=== PATIENT | male | born 1945 | race Caucasian/White ===

== ENCOUNTER → 2018-10-22 11:42 | Outpatient (CLI) | payer MEDICARE, OTHER, SELFPAY ==
[2018-10-22 15:44] LABS: Absolute Lymphocyte Count 1.59 X10^3/ul (0.83-4.51); Absolute Neutrophil Count 5.9 X10^3/uL (2.0-7.7); Eosinophil# 0.31 X10^3/uL; Eosinophils% 3.6 % (0-5); Hematocrit 46.1 % (40-54); Hemoglobin 15.4 g/dl (13.0-16.5); Lymphocyte # 1.59 X10^3/ul (4.0); Lymphocyte % 18.6 % (19-41); Mean Corp Hgb Conc 33.4 g/gl (32-36); Mean Corpuscular Volume 95.8 fL (80-94); Mean Platelet Vol. 11.1 fl (6.2-12.0); Monocyte# 0.74 X10^3/uL; Monocyte% 8.7 % (0-10); Neutrophil # 5.88 X10^3/uL (2.7-7.7); Neutrophil % 68.9 % (47-70); Platelet Count 226 K/mm3 (150-450); RBC Distribution Width CV 13.2 % (11.6-14.6); RBC Distribution Width SD 45.4 fl (35.1-43.9); Red Blood Count 4.81 M/mm3 (4.6-6.2); White Blood Count 8.5 K/mm3 (4.4-11.0)
[2018-10-22 15:56] LABS: AST(SGOT) 34 U/L (15-37); Alanine Aminotransfer ALT/SGPT 28 U/L (16-61); Albumin, Serum 3.7 g/dL (3.2-5.0); Alkaline Phosphatase 64 U/L (45-117); Anion Gap 10 (5-15); BUN 20 mg/dL (7-18); BUN/Creat Ratio 16.5 RATIO (10-20); Calcium,Total 8.5 mg/dL (8.5-10.1); Chloride 108 mmol/L (98-107); Cholesterol 170 mg/dL (200); Creatinine, Serum 1.21 mg/dL (0.70-1.30); EST Glomerular Filtration Rate 62 mL/min (>60); Est Glom Filt Rate - Afr Amer 75 mL/min (>60); Globulin 3.7 g/dL (2.2-4.2); Glucose 126 mg/dL (74-106); High Density Lipoprotein 35 mg/dL; PSA,Total - Annual Screen 1.58 ng/mL (0.00-4.00); Potassium 4.1 mmol/L (3.5-5.1); Protein, Total 7.4 g/dL (6.4-8.2); Sodium Level 140 mmol/L (136-145); Triglycerides 96 mg/dL; Very Low Density Lipoprotein 19 mg/dL (5-40)
[2018-10-22 15:58] LABS: POSITIVE COUNT NO; POSITIVE DIFFERENTIAL NO; POSITIVE MORPHOLOGY NO
[2018-10-22 16:21] LABS: Hemoglobin A1c 6.2 % (4.2-6.3)
== END ==
PROVIDERS: Family Provider Family Medicine; PCP Family Medicine; Visit Provider Family Medicine
DX: Z00.01 Encounter for general adult medical examination with abnormal findings (principal); I10 Essential (primary) hypertension; R73.01 Impaired fasting glucose; E78.5 Hyperlipidemia, unspecified; Z12.5 Encounter for screening for malignant neoplasm of prostate
CPT/HCPCS: 36415; 80053; 80061; 83036; 84153; 85025; G0103

== ENCOUNTER → 2019-10-24 14:01 | Outpatient (CLI) | payer MEDICARE, OTHER, SELFPAY ==
[2019-10-24 15:46] LABS: Absolute Lymphocyte Count 4.63 X10^3/uL (0.83-4.51); Absolute Neutrophil Count 4.2 X10^3/uL (2.0-7.7); Basophil# 0.03 X10^3/uL; Basophil% 0.3 % (0-1); Eosinophil# 0.45 X10^3/uL; Eosinophils% 4.4 % (0-5); Hematocrit 34.8 % (40-54); Lymphocyte # 4.63 X10^3/ul (4.0); Lymphocyte % 45.6 % (19-41); Mean Corp Hgb Conc 28.7 g/dL (32-36); Mean Corpuscular Hgb 22.1 pg (27.0-32.0); Mean Platelet Vol. 10.5 fl (6.2-12.0); Monocyte# 0.79 X10^3/uL; Monocyte% 7.8 % (0-10); NRBC Flagged by Analyzer 0 % (0-5); Neutrophil # 4.23 X10^3/uL (2.7-7.7); Neutrophil % 41.6 % (47-70); Platelet Count 411 K/mm3 (150-450); Red Blood Count 4.52 M/mm3 (4.6-6.2); White Blood Count 10.2 K/mm3 (4.4-11.0)
[2019-10-24 16:08] LABS: Hemoglobin A1c 7.2 % (4.2-6.3)
[2019-10-24 16:11] LABS: Vitamin B12 433 pg/mL (211-911)
[2019-10-24 16:13] LABS: AST(SGOT) 14 U/L (15-37); Alanine Aminotransfer ALT/SGPT 18 U/L (16-61); Albumin, Serum 3.8 g/dL (3.2-5.0); Alkaline Phosphatase 75 U/L (45-117); Anion Gap 7 (5-15); BUN 21 mg/dL (7-18); BUN/Creat Ratio 17.5 RATIO (10-20); Calcium,Total 8.5 mg/dL (8.5-10.1); Chloride 110 mmol/L (98-107); Cholesterol 161 mg/dL (200); EST Glomerular Filtration Rate 63 mL/min (>60); Est Glom Filt Rate - Afr Amer 76 mL/min (>60); Globulin 3.7 g/dL (2.2-4.2); Glucose 144 mg/dL (74-106); High Density Lipoprotein 36 mg/dL; PSA,Total - Annual Screen 1.68 ng/mL (0.00-4.00); Potassium 3.9 mmol/L (3.5-5.1); Protein, Total 7.5 g/dL (6.4-8.2); Sodium Level 139 mmol/L (136-145); Triglycerides 89 mg/dL; Very Low Density Lipoprotein 18 mg/dL (5-40)
== END ==
PROVIDERS: Family Provider Family Medicine; PCP Family Medicine; Visit Provider Family Medicine
DX: E78.5 Hyperlipidemia, unspecified (principal); R73.01 Impaired fasting glucose; Z12.5 Encounter for screening for malignant neoplasm of prostate; Z51.81 Encounter for therapeutic drug level monitoring
CPT/HCPCS: 36415; 80053; 80061; 82607; 83036; 84153; 85025; G0103

== ENCOUNTER → 2019-10-28 10:55 | Outpatient (CLI) | payer MEDICARE, OTHER, SELFPAY ==
[2019-10-28 12:36] LABS: Ferritin 8 ng/mL (26-388); Iron 20 ug/dL (65-175)
== END ==
PROVIDERS: Family Provider Family Medicine; PCP Family Medicine; Visit Provider Family Medicine
DX: D64.9 Anemia, unspecified (principal)
CPT/HCPCS: 36415; 82728; 83540

== ENCOUNTER → 2019-11-06 05:53 | Outpatient (CLI) | payer MEDICARE, OTHER, SELFPAY ==
[2019-11-03 09:39] VITALS: BMI 33.7
--- NOTE | 2019-11-07 12:49 | STRESSREP ---
Stress Test Report Date: 11/06/2019 Procedure: Pharmacologic stress nuclear imaging study Indications: Hypertension, strong family history of CAD Consent: Per the patient Procedure: The patient underwent pharmacologic (Regadenoson) evaluation with a peak heart rate of 90 beats per minute (61 %predicted maximal heart rate) and a peak blood pressure of 128/70 mmHg. The baseline ECG demonstrated sinus bradycardia occasional PVCs. EKG during lexiscan infusion revealed no significant change from baseline. EKG post infusion revealed no significant change from baseline [There were no cardiac dysrhythmias pretest, during pharmacologic infusion, or recovery]. [There was no complaint of chest discomfort during pharmacologic infusion or recovery]. The examination was discontinued secondary to completion of protocol. Impression: 1. Lexiscan stress test test is negative for Lexiscan infusion induced EKG changes of ischemia. 2. Lexiscan stress test test is negative for Lexiscan infusion induced chest pain. 3. Results of the nuclear portion of the test is as below Myocardial perfusion imaging study: Technique: The patient was injected with 11 millicuries of technetium 99m Cardiolite and subsequently rest SPECT Cardiolite nuclear imaging was obtained in the horizontal long, vertical long, and short axis views. The patient underwent pharmacologic (Regadenoson) evaluation. Please see above for details. The patient was injected with 33 millicuries of technetium 99m Cardiolite and subsequently stress SPECT Cardiolite nuclear imaging was obtained in the horizontal long, vertical long, and short axis views. A gated Cardiolite study at peak stress was obtained. Interpretation: Rest and stress SPECT Cardiolite nuclear imaging status post realignment, normalization, and attenuation correction demonstrate mildly decreased radioisotope uptake in the inferior wall on both the rest and stress images prior to attenuation correction. After attenuation correction there appears to be normalization of the uptake in this region. These findings are suggestive of diaphragmatic attenuation artifact. There is no significant reversibility suggestive of significant ischemia. Gated images reveal no significant regional wall motion abnormalities. The reported LVEF is greater than 70 %. Impression: 1. There is no evidence of significant ischemia or infarction. 2. Estimated ejection fraction is greater than 70%. This note was generated with [employer] software. It may contain incorrect words, spelling, and punctuation that were not noted in checking the note before signing.
== END ==
PROVIDERS: Family Provider Family Medicine; PCP Family Medicine; Referring Provider Family Medicine; Visit Provider Family Medicine
DX: I25.10 Atherosclerotic heart disease of native coronary artery without angina pectoris (principal); I25.83 Coronary atherosclerosis due to lipid rich plaque; I10 Essential (primary) hypertension; Z82.49 Family history of ischemic heart disease and other diseases of the circulatory system
CPT/HCPCS: 78452; 93017; A9500; A4216; J2785

== ENCOUNTER 2019-11-10 09:50 | Day surgery (SDC) | payer MEDICARE, OTHER, SELFPAY ==
[2019-11-03 09:39] VITALS: BMI 33.7
--- NOTE | 2019-11-04 08:43 | HP_ITS ---
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 Is patient in pain?: No Allergies No Known Allergies Allergy (Unverified 11/03/19 09:40) Medications amlodipine 10 mg tablet 10 mg PO DAILY 11/03/19 [History Confirmed 11/03/19] ascorbate calcium (vitamin C) 500 mg tablet 500 mg PO DAILY 11/03/19 [History Confirmed 11/03/19] aspirin 81 mg tablet,delayed release 81 mg PO DAILY 11/03/19 [History Confirmed 11/03/19] beta carotene 25,000 unit capsule 25,000 unit PO DAILY 11/03/19 [History Confirmed 11/03/19] cholecalciferol (vitamin D3) 1,000 unit capsule 1,000 unit PO DAILY 11/03/19 [History Confirmed 11/03/19] loratadine 10 mg tablet 10 mg PO DAILY 11/03/19 [History Confirmed 11/03/19] lutein 25 mg-zeaxanthin 5 mg capsule 1 cap PO QDAY cap 11/03/19 [History Confirmed 11/03/19] lysine 500 mg tablet 500 mg PO DAILY 11/03/19 [History Confirmed 11/03/19] omeprazole 20 mg tablet,delayed release 20 mg PO DAILY 11/03/19 [History Confirmed 11/03/19] saw palmetto 160 mg capsule 160 mg PO DAILY cap 11/03/19 [History Confirmed 11/03/19] vitamin E (dl, acetate) 400 unit capsule 400 unit PO DAILY 11/03/19 [History Confirmed 11/03/19] [facility] Medical History (Updated 11/03/19 @ 09:36 by Nhi Villarreal) Anemia (Acute) Heme positive stool (Acute) Dyslipidemia (Acute) Hypertension (Chronic) CAD (coronary artery disease) (Acute) Diabetes (Acute) Fatigue (Acute) History of gastroesophageal reflux (GERD) (Chronic) History of chronic cholecystitis (Chronic) History of acute pancreatitis (Chronic) Surgical History (Updated 11/03/19 @ 09:36 by Nhi Villarreal) Hx of cholecystectomy (Acute) Hx of appendectomy (Acute) Family History (Updated 11/03/19 @ 09:38 by Nhi Villarreal) Sister Breast cancer Heart disease CVA (cerebral vascular accident) Father Heart disease Brother Heart disease Social History (Updated 11/03/19 @ 09:39 by Nhi Villarreal) Smoking Status: Former smoker second hand exposure: No alcohol intake: never substance use type: does not use caffeine: No what type of physical activity do you participate in: none frequency: does not exercise HPI HPI HPI: ALEJANDRO MAYER, is a 74 M who presents to the office today for HPI HPI HPI: ALEJANDRO MAYER, is a 74 M who presents to the office today for Date _ Giancarlo Zhou MD
[2019-11-10] VITALS (7 sets, daily range): BP systolic 79–116; BP diastolic 52–67; PULSE 50–81; RESP 16; TEMP 36.2–36.6; O2SAT 94–100; BMI 32.5
--- NOTE | 2019-11-10 | COLBX_PTH ---
PATIENT: ALEJANDRO CHAN LOC: EN U#:[id number] AGE/SX: 74/M ROOM: RE11/10/[address]: Dr. Giancarlo Zhou MD : 1945 BED: DIS: 11/10/2019 SPEC #: [id number] RECD: 11/10/19 15:10 STATUS: SHALOM REQ #: [id number] DEL: 11/10/19 00:[address]: Giancarlo Zhou DEPT: SURGICAL PATHOLOGY RECD BY: Cristobal Avery ENTERED: 11/11/19 08:39 SP TYPE: COLON BX OTHR DR: Dr. 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 See comment. AM:holden 11/13/19 COMMENT Immunohistochemistry ([id number]) supports the above diagnosis. MICROSCOPIC DESCRIPTION Slides are reviewed. GROSS DESCRIPTION Received in fixative is one container labeled with the patient's name and designated 5 cm distal to ileocecal valve. The specimen consists of multiple irregular fragments of light melendez soft tissue that in aggregate measure 1.2 x 0.5 x 0.1 cm. The specimen is totally submitted in one cassette. / SJ:holden 11/11/19 TC:0 CPT: 69079
--- NOTE | 2019-11-10 | IMM_PTH ---
PATIENT: ALEJANDRO CHAN LOC: EN U#:[id number] AGE/SX: 74/M ROOM: RE11/10/[address]: Dr. Giancarlo Zhou MD : 1945 BED: DIS: 11/10/2019 SPEC #: [id number] RECD: 11/13/19 11:59 STATUS: SOUT REQ #: [id number] DEL: 11/10/19 00:[address]: Giancarlo Zhou DEPT: IMMUNOHISTOCHEMISTRY RECD BY: Melinda Valero ENTERED: 11/13/19 12:01 SP TYPE: IMMUNO OTHR DR: Dr. Matteo Chan, DO Tissues: Ileum, NOS Procedures: RCC (add) MSH2 (add) MLH-1 (add) MSH6 (add) Anti-PMS2 (add) NAPSIN A (add) CD56 (add) CHROMO (add) CK20 (add) CK5-6 (add) CK7 (add) CK8 (add) CLEMENT-2 (add) HEP PAR (add) KI-67 (add) P16 (add) P53 (add) TTF1 (add) Pankeratin (initial) P40 (add) CDX2 (add) PSAP (add) S-100 (add) PHYSICIAN & [place] [id number] SPECIMEN INFORMATION: Tissue Source: Mass distal to ileocecal valve, biopsy Clinical Info: Anemia, positive Cologuard Specimen Number: [id number] CPT code: 35765, 46881 x22 METHODOLOGY: Deparaffinized sections of prefer/formalin-fixed tissue or PAP/DQ stained slides are incubated with monoclonal/polyclonal antibodies/oligonucleotide probes. Localization is made via biotin free immunoperoxidase method. Appropriate controls are performed and reacted as expected. Results on target cell population are indicated in the following table: RESULTS: ANTIBODY / CLONE RESULT AE1-3 (AE1/AE3/PCK26) positive CK7 (OV-TL12/30) positive, focal CK8 (87ogqlW14) positive CK20 (KS20.8) positive, focal CDX2 (PFK5056B) positive S-100 (4C4.9) negative CD56 (123C3.D5) negative Chromo (LK2H10) negative TTF-1 (8G7G3/1) negative Napsin A (Rabbit Polyclonal) positive HepPar (OCh1E5) negative RCC (PN-15) negative PSAP (PASE/4LJ) negative CK5-6 (D5 & 1684) negative P40 (BC28) negative Ki-67 (30-9) positive, >80% P53 (DO-7) positive, 45% CLEMENT-2 (SP21) positive MLH-1 (M1) positive MSH2 (25D12) positive MSH6 (44) positive PMS2 (HNI2574) positive P16 (E6H4) positive These tests were developed and their performance characteristics determined by [facility]. They may not have been cleared or approved by the U.S. Food and Drug Administration. The FDA has determined that such clearance or approval is not necessary. The above immunohistochemical/dualISH markers are ordered and reviewed by the Pathologist. INTERPRETATION: Mass distal to ileocecal valve, biopsy: Poorly differentiated adenocarcinoma. Result of Microsatellite Instability Study: Negative (no loss of mismatch protein; no microsatellite instability detected). AM:holden 11/14/19
[2019-11-10] MEDS: Lactated Ringers 1,000 ML 100 ML IV ×2 (10:42→13:51)
--- NOTE | 2019-11-10 11:08 | PCM.HP.BLA ---
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 Is patient in pain?: No Allergies No Known Allergies Allergy (Unverified 11/03/19 09:40) Medications amlodipine 10 mg tablet 10 mg PO DAILY 11/03/19 [History Confirmed 11/03/19] ascorbate calcium (vitamin C) 500 mg tablet 500 mg PO DAILY 11/03/19 [History Confirmed 11/03/19] aspirin 81 mg tablet,delayed release 81 mg PO DAILY 11/03/19 [History Confirmed 11/03/19] beta carotene 25,000 unit capsule 25,000 unit PO DAILY 11/03/19 [History Confirmed 11/03/19] cholecalciferol (vitamin D3) 1,000 unit capsule 1,000 unit PO DAILY 11/03/19 [History Confirmed 11/03/19] loratadine 10 mg tablet 10 mg PO DAILY 11/03/19 [History Confirmed 11/03/19] lutein 25 mg-zeaxanthin 5 mg capsule 1 cap PO QDAY cap 11/03/19 [History Confirmed 11/03/19] lysine 500 mg tablet 500 mg PO DAILY 11/03/19 [History Confirmed 11/03/19] omeprazole 20 mg tablet,delayed release 20 mg PO DAILY 11/03/19 [History Confirmed 11/03/19] saw palmetto 160 mg capsule 160 mg PO DAILY cap 11/03/19 [History Confirmed 11/03/19] vitamin E (dl, acetate) 400 unit capsule 400 unit PO DAILY 11/03/19 [History Confirmed 11/03/19] [facility] Medical History (Updated 11/04/19 @ 08:42 by Giancarlo Zhou MD) Anemia (Acute) Heme positive stool (Acute) Dyslipidemia (Acute) Hypertension (Chronic) CAD (coronary artery disease) (Acute) Diabetes (Acute) Fatigue (Acute) History of gastroesophageal reflux (GERD) (Chronic) History of chronic cholecystitis (Chronic) History of acute pancreatitis (Chronic) Surgical History (Updated 11/03/19 @ 09:36 by Nhi Villarreal) Hx of cholecystectomy (Acute) Hx of appendectomy (Acute) Family History (Updated 11/03/19 @ 09:38 by Nhi Villarreal) Sister Breast cancer Heart disease CVA (cerebral vascular accident) Father Heart disease Brother Heart disease Social History (Updated 11/04/19 @ 08:43 by Giancarlo Zhou MD) Smoking Status: Former smoker second hand exposure: No alcohol intake: never substance use type: does not use caffeine: No what type of physical activity do you participate in: none frequency: does not exercise HPI HPI HPI: ALEJANDRO MAYER, is a 74 M who presents to the office today for HPI HPI Surgical H&P: Yes HPI: ALEJANDRO MAYER, is a 74 M who presents to the office today for positive fecal occult blood test. The patient had a recent Hemoccult positive stool after being found to have iron deficiency anemia. His last colonoscopy was in 2009. He reports no gross blood in stool or abdominal pain. He is on aspirin. He has no family history of colon cancer. ROS General General: Yes fatigue; no weight change Endo Endocrine: Yes diabetes mellitus Cardio Cardiovascular: Yes high blood pressure; no murmur, pacemaker, heart disease, atrial fibrillation, heart attack, heart stent, palpitations, shortness of breat with exertion or chest pain Psych Psychiatric: No depression or anxiety Resp Respiratory: No shortness of breath, No sleep apnea, No cough, No COPD, No asthma, No emphysema, No wheezing Gastro Gastrointestinal: No abdominal pain, No nausea or vomiting, No diarrhea, No constipation, Yes blood in stool, Yes acid reflux, No hemorrhoids, No ulcers, No gallbladder problem, No black,tarry stools Zhang Hematologic: Yes blood thinners, Yes anemia Exam Const General: cooperative Orientation: alert, oriented x3 Resp Effort & Inspection: normal respiratory effort Auscultation: clear to auscultation bilaterally Cardio Rate: regular rate Rhythm: regular rhythm Heart Sounds: no murmurs GI Inspection: non-distended Palpation: soft, nontender Assessment & Plan Problems 1. Iron deficiency anemia, unspecified iron deficiency anemia type D50.9 2. Heme positive stool R19.5 Plan The patient has history of iron deficiency anemia and heme positive stool. I recommend EGD and colonoscopy. I explained endoscopy in detail to the patient. I explained the risks including but not limited to stroke or heart attack with anesthesia, perforation of the GI tract, bleeding, infection. I explained that any of these could necessitate further emergency surgery. The patient understands and all questions were answered sufficiently. The patient wishes to proceed with procedure. Giancarlo Zhou MD Pager: [facility] [address] [place] [address], [address] [place] [address] Office:
--- NOTE | 2019-11-10 11:45 | CT_ITS ---
STUDY: CT ABDOMEN AND PELVIS WITH CONTRAST REASON FOR EXAM: Male, 74 years old. Colon cancer, anemia, abnormal colonoscopy, mass of ascending colon. Prior appendectomy, cholecystectomy, hypertension, diabetes. RADIATION DOSAGE (If Supplied By Facility): CTDIvol = ( 17.39 ) mGy, DLP = ( 1138.88 ) mGycm TECHNIQUE: Transaxial images were obtained from the dome of the diaphragm to the symphysis pubis without oral contrast. 100mL Isovue-300 and amp; gastrografin was administered. Sagittal and coronal images were reconstructed. Individualized dose optimization techniques were used for this CT. COMPARISON: 12/06/2011. FINDINGS: Small hiatal hernia. The visualized lung bases are unremarkable. The visualized portions of the heart are within normal limits. Normal liver. Postsurgical change in the gallbladder fossa region. There are multiple benign calcified granulomata of the spleen. Normal pancreas. Normal bilateral adrenal glands. Normal right kidney. Left renal cyst within left kidney measuring 4.2 x 4.1 cm in cross-section. Normal visualized stomach. Normal caliber of small intestine. Lesion within the right ascending colon about 4.3 cm distal to the ileocecal valve consistent with patient history of colonic cancer. There are surgical clips in the region of the appendix consistent with a prior appendectomy. There is diffuse atherosclerotic calcification of the abdominal aorta, without a demonstrated aneurysm. 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 Normal retroperitoneum. Normal urinary bladder. Normal abdominal wall. There are diffuse degenerative changes of the visualized lumbar spine. CT/Abdomen/Pelvis WITH Contrast IMPRESSION: Lesion within the right ascending colon about 4.3 cm distal to the ileocecal valve consistent with patient history of colonic cancer. Postsurgical change in the gallbladder fossa. Left renal cyst likely benign measuring 4.2 x 4.1 cm. No gross ascites fluid in the peritoneal space. No evidence of intrahepatic lesion. Electronically Signed: Lauro Terry MD at 15:50 EST Tel [phone], Service support ,
--- NOTE | 2019-11-10 11:49 | OP.EGD_ITS ---
Patient Name: Dougie Chan Procedure Date: 11/10/2019 11:12 AM Date of : 1945 Age: 74 Procedure: Upper GI endoscopy Indications: Iron deficiency anemia Providers: Giancarlo Zhou MD Referring MD: Matteo Chan Medicines: Monitored Anesthesia Care Patient Profile: This is a 74 year old male. Refer to note in patient chart for documentation of history and physical. Complications: No immediate complications. Estimated blood loss: Minimal. Procedure: Pre-Anesthesia Assessment: - Prior to the procedure, a History and Physical was performed, and patient medications and allergies were reviewed. The patient's tolerance of previous anesthesia was also reviewed. The risks and benefits of the procedure and the sedation options and risks were discussed with the patient. All questions were answered, and informed consent was obtained. Prior Anticoagulants: The patient has taken no previous anticoagulant or antiplatelet agents. After reviewing the risks and benefits, the patient was deemed in satisfactory condition to undergo the procedure. After obtaining informed consent, the endoscope was passed under direct vision. Throughout the procedure, the patient's blood pressure, pulse, and oxygen saturations were monitored continuously. The gastroscope was introduced through the mouth, and advanced to the second part of duodenum. The upper GI endoscopy was accomplished without difficulty. The patient tolerated the procedure well. Scope In: 11:28:28 AM Scope Out: 11:30:09 AM Total Procedure Duration Time 0 hours 1 minute 41 seconds Findings: The esophagus was normal. The stomach was normal. The examined duodenum was normal. A small hiatal hernia was present. Impression: - Normal esophagus. - Normal stomach. - Normal examined duodenum. - Small hiatal hernia. - No specimens collected. Recommendation: - Discharge patient to home. - Resume previous diet. - Continue present medications. Procedure Code(s): --- Professional --- 13459, Esophagogastroduodenoscopy, flexible, transoral; diagnostic, including collection of specimen(s) by brushing or washing, when performed (separate procedure) Diagnosis Code(s): --- Professional --- K44.9, Diaphragmatic hernia without obstruction or gangrene D50.9, Iron deficiency anemia, unspecified CPT copyright 2017 [employer]. All rights reserved. The codes documented in this report are preliminary and upon emergency medicine physician review may be revised to meet current compliance requirements. Giancarlo Zhou MD 11/10/2019 11:49:11 AM This report has been signed electronically. Number of Addenda: 0 Note Initiated On: 11/10/2019 11:12 AM
--- NOTE | 2019-11-10 11:54 | OP.COLON_ITS ---
Patient Name: Dougie Chan Procedure Date: 11/10/2019 11:30 AM Date of : 1945 Age: 74 Procedure: Colonoscopy Indications: Iron deficiency anemia, Positive Cologuard test Providers: Giancarlo Zhou MD Referring MD: Matteo Chan Medicines: Monitored Anesthesia Care Patient Profile: This is a 74 year old male. Refer to note in patient chart for documentation of history and physical. Last Colonoscopy: 10 years ago. Complications: No immediate complications. Estimated blood loss: Minimal. Procedure: Pre-Anesthesia Assessment: - Prior to the procedure, a History and Physical was performed, and patient medications and allergies were reviewed. The patient's tolerance of previous anesthesia was also reviewed. The risks and benefits of the procedure and the sedation options and risks were discussed with the patient. All questions were answered, and informed consent was obtained. Prior Anticoagulants: The patient has taken no previous anticoagulant or antiplatelet agents. After reviewing the risks and benefits, the patient was deemed in satisfactory condition to undergo the procedure. After I obtained informed consent, the scope was passed under direct vision. Throughout the procedure, the patient's blood pressure, pulse, and oxygen saturations were monitored continuously. The Colonoscope was introduced through the anus and advanced to the cecum, identified by appendiceal orifice and ileocecal valve. The colonoscopy was performed without difficulty. The patient tolerated the procedure well. The quality of the bowel preparation was good. Scope In: 11:32:16 AM Scope Withdrawal Time 0 hours 6 minutes 57 seconds Scope Out: 11:42:56 AM Total Procedure Duration Time 0 hours 10 minutes 40 seconds Findings: A fungating non-obstructing large mass was found in the cecum. The mass was partially circumferential (involving two-thirds of the lumen circumference). No bleeding was present. This was biopsied with a cold forceps for histology. The exam was otherwise without abnormality on direct and retroflexion views. Impression: - Likely malignant tumor in the cecum. Biopsied. - The examination was otherwise normal on direct and retroflexion views. Recommendation: - Discharge patient to home. - Resume previous diet. - Continue present medications. - Will obtain CT and CEA. - Await pathology results. - Return to my office in 4 days. - Repeat colonoscopy for surveillance based on pathology results. Procedure Code(s): --- Professional --- 09307, Colonoscopy, flexible; with biopsy, single or multiple Diagnosis Code(s): --- Professional --- D49.0, Neoplasm of unspecified behavior of digestive system D50.9, Iron deficiency anemia, unspecified R19.5, Other fecal abnormalities CPT copyright 2017 [employer]. All rights reserved. The codes documented in this report are preliminary and upon plastic molding operator review may be revised to meet current compliance requirements. Giancarlo Zhou MD 11/10/2019 11:53:20 AM This report has been signed electronically. Number of Addenda: 0 Note Initiated On: 11/10/2019 11:30 AM
[2019-11-10 12:37] LABS: International Normalized Ratio 1.2; Prothrombin Time (Protime)PT. 15.4 SECONDS (11.7-14.9)
[2019-11-10 12:42] LABS: ALB/GLOB Ratio 1.2 RATIO (0.9-2.4); AST(SGOT) 15 U/L (15-37); Alanine Aminotransfer ALT/SGPT 15 U/L (16-61); Albumin, Serum 3.5 g/dL (3.2-5.0); Alkaline Phosphatase 61 U/L (45-117); Anion Gap 7 (5-15); BUN 19 mg/dL (7-18); BUN/Creat Ratio 15.4 RATIO (10-20); Calcium,Total 8.6 mg/dL (8.5-10.1); Chloride 112 mmol/L (98-107); Creatinine, Serum 1.23 mg/dL (0.70-1.30); EST Glomerular Filtration Rate 61 mL/min (>60); Est Glom Filt Rate - Afr Amer 74 mL/min (>60); Estimated Creatinine Clearance 47.55 ml/min; Glucose 124 mg/dL (74-106); Potassium 3.5 mmol/L (3.5-5.1); Protein, Total 6.5 g/dL (6.4-8.2); Sodium Level 142 mmol/L (136-145)
[2019-11-10 13:33] LABS: Absolute Lymphocyte Count 2.08 X10^3/uL (0.83-4.51); Absolute Neutrophil Count 4.4 X10^3/uL (2.0-7.7); Basophil# 0.02 X10^3/uL; Basophil% 0.3 % (0-1); Eosinophil# 0.21 X10^3/uL; Eosinophils% 2.9 % (0-5); Hematocrit 33.1 % (40-54); Hemoglobin 9.6 g/dL (13.0-16.5); Lymphocyte # 2.08 X10^3/ul (4.0); Lymphocyte % 28.6 % (19-41); Mean Corpuscular Hgb 21.8 pg (27.0-32.0); Mean Corpuscular Volume 75.2 fL (80-94); Mean Platelet Vol. 10.4 fl (6.2-12.0); Monocyte% 6.9 % (0-10); NRBC Flagged by Analyzer 0 % (0-5); Neutrophil # 4.43 X10^3/uL (2.7-7.7); Neutrophil % 60.9 % (47-70); POSITIVE COUNT YES; Platelet Count 362 K/mm3 (150-450); RBC Distribution Width CV 16.4 % (11.6-14.6); RBC Distribution Width SD 44.1 fl (35.1-43.9); White Blood Count 7.3 K/mm3 (4.4-11.0)
[2019-11-10 13:43] LABS: Differential Indicated SCAN CRITERIA MET
[2019-11-10 13:49] LABS: Anisocytosis 2+; Platelet Estimate ADEQUATE (ADEQ); Red Cell Morphology NORM C+C NORMAL (NORM C&C)
[2019-11-11 14:45] LABS: Carcinoembryonic Antigen 1.3 ng/mL (0.0-4.7)
== END 2019-11-10 15:20 | disposition home or self-care (01) ==
LOC: EN 09:50 → AC 09:51
PROVIDERS: Family Provider Family Medicine; PCP Family Medicine; Referring Provider Family Medicine; Visit Provider Surgery
PROC: 0DJD8ZZ Inspection of Lower Intestinal Tract, Via Natural or Artificial Opening Endoscopic (ICD-10-PCS; CPT 45378; principal; 2019-11-10 10:55)
DX: C18.0 Malignant neoplasm of cecum (principal); K44.9 Diaphragmatic hernia without obstruction or gangrene; D50.9 Iron deficiency anemia, unspecified; R19.5 Other fecal abnormalities; K21.9 Gastro-esophageal reflux disease without esophagitis; I25.10 Atherosclerotic heart disease of native coronary artery without angina pectoris; I10 Essential (primary) hypertension; R73.03 Prediabetes; Z79.82 Long term (current) use of aspirin; Z79.899 Other long term (current) drug therapy; Z87.891 Personal history of nicotine dependence
CPT/HCPCS: 43235; 45380; 36415; 74177; 80053; 82378; 85025; 85610; 88305; 88341; 88342; J7120; Q9967; A4216

== ENCOUNTER 2019-11-18 05:26 | Inpatient (IN) | payer MEDICARE, OTHER, SELFPAY ==
--- NOTE | 2019-11-04 08:43 | HP_ITS ---
Intake Vital Signs 11/03/19 Height 5 ft 6 in 11/03/19 Weight: 209 lb 11/03/19 BMI 33.7 11/03/19 BP 166/88 H 11/03/19 Blood Pressure Location Rt brachial 11/03/19 Position Sitting 11/03/19 Respiration 16 11/03/19 Pulse 81 11/03/19 Pulse Source Monitor 11/03/19 Temp 98.5 F 11/03/19 Temp Source Oral 11/03/19 Pulse Oximetry (%) 98 11/03/19 Oxygen Delivery Method room air Intake Visit Reasons: ANEMIA/POSITIVE HEMOCCULT Hematology Technician Required: No Is patient in pain?: No Allergies No Known Allergies Allergy (Unverified 11/03/19 09:40) Medications amlodipine 10 mg tablet 10 mg PO DAILY 11/03/19 [History Confirmed 11/03/19] ascorbate calcium (vitamin C) 500 mg tablet 500 mg PO DAILY 11/03/19 [History Confirmed 11/03/19] aspirin 81 mg tablet,delayed release 81 mg PO DAILY 11/03/19 [History Confirmed 11/03/19] beta carotene 25,000 unit capsule 25,000 unit PO DAILY 11/03/19 [History Confirmed 11/03/19] cholecalciferol (vitamin D3) 1,000 unit capsule 1,000 unit PO DAILY 11/03/19 [History Confirmed 11/03/19] loratadine 10 mg tablet 10 mg PO DAILY 11/03/19 [History Confirmed 11/03/19] lutein 25 mg-zeaxanthin 5 mg capsule 1 cap PO QDAY cap 11/03/19 [History Confirmed 11/03/19] lysine 500 mg tablet 500 mg PO DAILY 11/03/19 [History Confirmed 11/03/19] omeprazole 20 mg tablet,delayed release 20 mg PO DAILY 11/03/19 [History Confirmed 11/03/19] saw palmetto 160 mg capsule 160 mg PO DAILY cap 11/03/19 [History Confirmed 11/03/19] vitamin E (dl, acetate) 400 unit capsule 400 unit PO DAILY 11/03/19 [History Confirmed 11/03/19] [facility] Medical History (Updated 11/04/19 @ 08:42 by Giancarlo Zhou MD) Anemia (Acute) Heme positive stool (Acute) Dyslipidemia (Acute) Hypertension (Chronic) CAD (coronary artery disease) (Acute) Diabetes (Acute) Fatigue (Acute) History of gastroesophageal reflux (GERD) (Chronic) History of chronic cholecystitis (Chronic) History of acute pancreatitis (Chronic) Surgical History (Updated 11/03/19 @ 09:36 by Nhi Villarreal) Hx of cholecystectomy (Acute) Hx of appendectomy (Acute) Family History (Updated 11/03/19 @ 09:38 by Nhi Villarreal) Sister Breast cancer Heart disease CVA (cerebral vascular accident) Father Heart disease Brother Heart disease Social History (Updated 11/04/19 @ 08:43 by Giancarlo Zhou MD) Smoking Status: Former smoker second hand exposure: No alcohol intake: never substance use type: does not use caffeine: No what type of physical activity do you participate in: none frequency: does not exercise HPI HPI HPI: ALEJANDRO MAYER, is a 74 M who presents to the office today for HPI HPI Surgical H&P: Yes HPI: ALEJANDRO MAYER, is a 74 M who presents to the office today for positive fecal occult blood test. The patient had a recent Hemoccult positive stool after being found to have iron deficiency anemia. His last colonoscopy was in 2009. He reports no gross blood in stool or abdominal pain. He is on aspirin. He has no family history of colon cancer. ROS General General: Yes fatigue; no weight change Endo Endocrine: Yes diabetes mellitus Cardio Cardiovascular: Yes high blood pressure; no murmur, pacemaker, heart disease, atrial fibrillation, heart attack, heart stent, palpitations, shortness of breat with exertion or chest pain Psych Psychiatric: No depression or anxiety Resp Respiratory: No shortness of breath, No sleep apnea, No cough, No COPD, No asthma, No emphysema, No wheezing Gastro Gastrointestinal: No abdominal pain, No nausea or vomiting, No diarrhea, No constipation, Yes blood in stool, Yes acid reflux, No hemorrhoids, No ulcers, No gallbladder problem, No black,tarry stools Zhang Hematologic: Yes blood thinners, Yes anemia Exam Const General: cooperative Orientation: alert, oriented x3 Resp Effort & Inspection: normal respiratory effort Auscultation: clear to auscultation bilaterally Cardio Rate: regular rate Rhythm: regular rhythm Heart Sounds: no murmurs GI Inspection: non-distended Palpation: soft, nontender Assessment & Plan Problems 1. Iron deficiency anemia, unspecified iron deficiency anemia type D50.9 2. Heme positive stool R19.5 Plan The patient has history of iron deficiency anemia and heme positive stool. I recommend EGD and colonoscopy. I explained endoscopy in detail to the patient. I explained the risks including but not limited to stroke or heart attack with anesthesia, perforation of the GI tract, bleeding, infection. I explained that any of these could necessitate further emergency surgery. The patient understands and all questions were answered sufficiently. The patient wishes to proceed with procedure. Giancarlo Zhou MD Pager: [facility] [address] [place] [address], [address] [place] [address] Office: Orders Orders: Colonoscopy Today D64.9, R19.5 EGD Today D64.9, R19.5 Coding Level of Care Code Off vis,new,level 3 Diagnoses Iron deficiency anemia, unspecified iron deficiency anemia type D50.9 ??Anemia type: iron deficiency ??Iron deficiency anemia type: unspecified iron deficiency Heme positive stool R19.5 11/04/19 1641 <Electronically signed by Giancarlo zepeda MD> Date _ Giancarlo Zhou MD
[2019-11-10 10:23] VITALS: BMI 32.5
[2019-11-14 08:36] VITALS: BMI 32.3
[2019-11-18] VITALS (13 sets, daily range): BP systolic 97–117; BP diastolic 50–66; PULSE 55–69; RESP 16–18; TEMP 35.7–36.9; O2SAT 94–100; BMI 32.2; BMI 31.8
[2019-11-18] MEDS: Gabapentin 600 MG Tablet PO (05:30)
[2019-11-18] MEDS: Magnesium Sulfate 4gm/100mL 4 GM/100 ML IV.SOLN. IV (05:30)
[2019-11-18] MEDS: Lactated Ringers 1,000 ML 40 ML IV ×2 (05:30→12:20)
[2019-11-18] MEDS: Acetaminophen 500 MG Tablet 1000 MG PO ×3 (05:30→23:55)
--- NOTE | 2019-11-18 05:51 | EKG12_ITS ---
Test Reason : PREOP Blood Pressure : / mmHG Vent. Rate : 074 BPM Atrial Rate : 074 BPM P-R Int : 198 ms QRS Dur : 096 ms QT Int : 390 ms P-R-T Axes : 038 026 -05 degrees QTc Int : 432 ms Sinus rhythm with Premature atrial complexes Nonspecific ST abnormality Abnormal ECG Confirmed by HARSH RILEY, ROSELIA ([id number]), film editor EDITH GOSS ([id number]) on 11/20/2019 11:53:14 AM Referred By: Giancarlo Zhou Confirmed By:ROSELIA HOUSE MD
[2019-11-18 06:20] LABS: Bedside Glucose 141 mg/dL (70-110)
--- NOTE | 2019-11-18 06:35 | HP.PCM_ITS ---
Problem List (1) Colon cancer Status: Acute Qualifiers: Colon location: ascending Qualified Code(s): C18.2 - Malignant neoplasm of ascending colon History and Physical Date of Admission: 11/18/19 Intake Vital Signs 11/14/19 Height 5 ft 6 in 11/14/19 Weight: 200 lb 11/14/19 BMI 32.3 11/14/19 BP 117/67 11/14/19 Blood Pressure Location Rt brachial 11/14/19 Position Sitting 11/14/19 Respiration 16 11/14/19 Pulse 69 11/14/19 Pulse Source Monitor 11/14/19 Temp 98.5 F 11/14/19 Temp Source Oral 11/14/19 Pulse Oximetry (%) 97 11/14/19 Oxygen Delivery Method room air 11/14/19 BMI 32.5 Intake Visit Reasons: Discuss Surgery Data Warehousing Architect Required: No Is patient in pain?: No Allergies No Known Allergies Allergy (Verified 11/14/19 08:33) Medications amlodipine 10 mg tablet 10 mg PO DAILY 11/03/19 [History Confirmed 11/14/19] ascorbate calcium (vitamin C) 500 mg tablet 500 mg PO DAILY 11/03/19 [History Confirmed 11/14/19] aspirin 81 mg tablet,delayed release 81 mg PO DAILY 11/03/19 [History Confirmed 11/10/19] beta carotene 25,000 unit capsule 25,000 unit PO DAILY 11/03/19 [History Confirmed 11/14/19] cholecalciferol (vitamin D3) 1,000 unit capsule 1,000 unit PO DAILY 11/03/19 [History Confirmed 11/14/19] loratadine 10 mg tablet 10 mg PO DAILY 11/03/19 [History Confirmed 11/14/19] lutein 25 mg-zeaxanthin 5 mg capsule 1 cap PO QDAY cap 11/03/19 [History Confirmed 11/14/19] lysine 500 mg tablet 500 mg PO DAILY 11/03/19 [History Confirmed 11/14/19] omeprazole 20 mg tablet,delayed release 20 mg PO DAILY 11/03/19 [History Confirmed 11/14/19] saw palmetto 160 mg capsule 160 mg PO DAILY cap 11/03/19 [History Confirmed 11/14/19] vitamin E (dl, acetate) 400 unit capsule 400 unit PO DAILY 11/03/19 [History Confirmed 11/10/19] metronidazole 500 mg tablet 500 mg PO .COMPLEX #3 tab 11/14/19 [Rx Confirmed 11/14/19] neomycin 500 mg tablet 500 mg PO .COMPLEX #6 tab 11/14/19 [Rx Confirmed 11/14/19] PFSH Medical History Anemia (Acute) Heme positive stool (Acute) Dyslipidemia (Acute) Hypertension (Chronic) CAD (coronary artery disease) (Acute) Diabetes (Acute) Fatigue (Acute) History of gastroesophageal reflux (GERD) (Chronic) History of chronic cholecystitis (Chronic) History of acute pancreatitis (Chronic) Surgical History Hx of cholecystectomy (Acute) Hx of appendectomy (Acute) Family History Sister Breast cancer Heart disease CVA (cerebral vascular accident) Father Heart disease Brother Heart disease Social History (Updated 11/14/19 @ 09:33 by Giancarlo Zhou MD) Smoking Status: Never smoker second hand exposure: No alcohol intake: never substance use type: does not use caffeine: No what type of physical activity do you participate in: none frequency: does not exercise HPI HPI HPI: ALEJANDRO MAYER, is a 74 M who presents to the office today for HPI HPI Surgical H&P: Yes HPI: ALEJANDRO MAYER, is a 74 M who presents to the office today for Colon cancer. The patient underwent colonoscopy last week which showed a large mass in the right colon. I had him back to discuss surgery today. He is having no issues after surgery. ROS General General: Yes fatigue; no weight change Endo Endocrine: Yes diabetes mellitus Cardio Cardiovascular: Yes high blood pressure; no murmur, pacemaker, heart disease, atrial fibrillation, heart attack, heart stent, palpitations, shortness of breat with exertion or chest pain Psych Psychiatric: No depression or anxiety Resp Respiratory: No shortness of breath, No sleep apnea, No cough, No COPD, No asthma, No emphysema, No wheezing Gastro Gastrointestinal: No abdominal pain, No nausea or vomiting, No diarrhea, No constipation, Yes blood in stool, Yes acid reflux, No hemorrhoids, No ulcers, No gallbladder problem, No black,tarry stools Zhang Hematologic: Yes blood thinners, Yes anemia Exam Const General: cooperative Orientation: alert, oriented x3 Resp Effort & Inspection: normal respiratory effort Auscultation: clear to auscultation bilaterally Cardio Rate: regular rate Rhythm: regular rhythm Heart Sounds: no murmurs GI Inspection: non-distended Palpation: soft, nontender Assessment & Plan Problems 1. Malignant neoplasm of ascending colon C18.2 Plan The patient had colonoscopy last week which showed a large fungating mass likely cancerous in the right colon just distal to the ileocecal valve. The patient had CT scan which showed this mass with no signs of metastasis. CEA was normal. CBC and BMP were normal as well. I recommended right laparoscopic hemicolectomy. I recommended that the patient follow-up next week for right hemicolectomy and I discussed surgery in detail with the patient. I discussed the ERAS protocol with the patient as well. I discussed the surgery in detail including the risks of bleeding, infection, injury to surrounding organs such as the ureter, bowel, bladder. I also discussed the risks of anastomotic leak and wound infection or dehiscence. The patient understands the risks and is willing to proceed. He will follow-up next week for surgery. Giancarlo Zhou MD Pager: [facility] [address] [place] [address], [address] [place] [address] Office:
--- NOTE | 2019-11-18 07:30 | COL._PTH ---
PATIENT: ALEJANDRO CHAN LOC: MS3 U#:[id number] AGE/SX: 74/M ROOM: MS317 RE11/18/[address]: Dr. Giancarlo Zhou MD : 1945 BED: 1 DIS: 11/20/2019 SPEC #: [id number] RECD: 11/18/19 10:48 STATUS: SHALOM BAGLEY #: [id number] DEL: 11/18/19 07:[address]: Giancarlo Zhou DEPT: SURGICAL PATHOLOGY RECD BY: Kolby Gonzalez ENTERED: 11/18/19 12:20 SP TYPE: COLON OTHR DR: Dr. Matteo Chan DO Tissues: Colon, NOS Procedures: Surgery Specimen Level HEADER OPERATION: ERAS, laparoscopic hemicolectomy, lysis of adhesions PRE-OP DIAGNOSIS: Colon cancer TISSUE SUBMITTED: Right colon MICROSCOPIC DIAGNOSIS Right colon, segmental colectomy: Invasive poorly differentiated adenocarcinoma. See cancer checklist below. AM:holden 11/21/19 COMMENT COLON CANCER SUMMARY Procedure: Right hemicolectomy Tumor site: Right colon Tumor size: 4.7 x 4 x 0.8 cm Macroscopic tumor perforation: Not identified Histologic type: Adenocarcinoma Histologic grade: G3 (poorly differentiated) Tumor extension: Tumor penetrates muscularis propria. Margins: All margins are uninvolved by invasive carcinoma, high grade dysplasia/CIS and adenomatous change. Margins examined: Proximal, distal and serosal Treatment effect: Unknown Lymphvascular invasion: Not identified Perineural invasion: Not identified Tumor lymphocytic response: Marked Tumor deposits: Not identified Regional lymph nodes: 29 of 29 lymph nodes negative for metastatic carcinoma. Ancillary studies: See microsatellite instability study by IHC ([id number]) for complete details. Negative (no loss of mismatch protein; no microsatellite instability detected). Additional pathologic findings: Focal benign lymphoid hyperplasia of small bowel. PATHOLOGIC STAGE: pT3 N0 Mx The above summary is in compliance with [employer] [place] [employer] (CAP) Cancer Protocols Checklist and [place] Joint Committee on Cancer (AJCC), Staging Manual, 8th Ed. Case has been reviewed in consultation with Dr. Farmer who concurs with the above diagnosis. IDC:SJ MICROSCOPIC DESCRIPTION Slides are reviewed. GROSS DESCRIPTION Received in fixative is one container labeled with the patient's name and designated right colon. The specimen consists of an 18 cm segment of large bowel with attached 9.5 cm segment of terminal ileum. Located in the right colon at a distance of approximately 11 cm from the closest (distal) margin of resection is a firm, melendez, apple core-like lesion occupying approximately 60% of the circumference of the bowel and measuring 4.7 x 4 x 0.8 cm. The serosa in the area of mass is inked. The remainder of the small and large bowel mucosa is thrown into normal folds. No other mass lesions are identified. An appendix is not present. Serial sections of the mass do not reveal extension of mass into underlying fibrofatty tissue. The surrounding pericolic fatty tissue contains a number of nodules resembling lymph nodes. Middle School Librarian sections are submitted in 17 cassettes as follows: 1 - proximal mucosal margin of excision, 2 - ileocecal valve, 3 - food service representative sections of uninvolved small and large bowel at margin of resection, 47??tumor, 8 - multiple lymph nodes, 9 - one lymph node, bisected, 10 - one lymph node, bisected, 11 - one lymph node, bisected, 12-16 - multiple lymph nodes in each cassette, 17 - one lymph node, serially sectioned. / AM:holden 11/20/19 TC:0 CPT: 72036
[2019-11-18] MEDS: Lidocaine/D5W 2,000 MG/250 ML IV.SOLN 27.2 MG IV (07:49)
[2019-11-18] MEDS: BUPIVACAINE LIPOSOME/PF 20 ML VIAL OPERA.SITE (07:56)
--- NOTE | 2019-11-18 10:34 | PCM.OPRPT ---
Problem List (1) Colon cancer Status: Acute Qualifiers: Colon location: ascending Qualified Code(s): C18.2 - Malignant neoplasm of ascending colon Report of Operation Date of Procedure: 11/18/19 Pre-Operative Diagnosis: Colon cancer of the ascending colon Post-Operative Diagnosis: Same Surgery/Procedure Performed:: Laparoscopic right hemicolectomy with ileocolic anastomosis Specimen's removed: Right hemicolon Description of Procedure: Patient was brought to the operating room and general anesthesia was induced. Sawyer catheter was placed. The abdomen was prepped and draped in usual sterile fashion. An incision was made superior to the umbilicus and deepened to the fascia. The fascia was incised and finger sweep was performed and 12 mm port was placed through this incision and the abdomen was insufflated to 15 mmHg. A 5 mm port was placed at the suprapubic region as well as the epigastric region under direct visualization. The tap block was performed under laparoscopic visualization. This was performed bilaterally in the lateral abdominal sidewalls. Next adhesions were taken down in the left lateral sidewall. The cecum was identified and the white line of Toldt was incised using scissors and this was brought superiorly. The terminal ileum was also incised from its adhesions in the lateral sidewall. There were loops of bowel adhesed to the terminal ileum and these were taken down sharply with scissors. The transverse colon was identified and the omentum was taken off of it superiorly using Enseal and the dissection was carried laterally until the hepatic flexure was released. Next the instruments were removed and the abdomen was desufflated. An incision was made between the 2 superior midline incisions and this was deepened to the fascia and the fascia was incised. A wound protector was placed. The right colon was delivered through the incision. The terminal ileum was divided using a 75 ERMA stapler. The transverse colon was also cleared free of fat and divided using a 75 ERMA stapler. The mesentery was divided toward the mass until the right colic pedicle was identified. The right colic vessels were tied with 0 silk suture ligatures and then divided. There was good hemostasis. The right hemicolon was then removed from the abdomen and sent for pathology. The abdomen was inspected and there were no further malignant appearing lymph nodes and there were no masses in the liver. Next the terminal ileum was stapled to the transverse colon using a 75 ERMA stapler and then the enterostomy was closed with 60 TX stapler. The staple line was inspected and 2 areas were bleeding and 3-0 silk sutures were used to stop this bleeding. There was good blood supply to the transverse colon. A crotch suture of 3-0 silk suture was placed. Next the anastomosis was delivered back into the abdomen and the abdomen was irrigated and suctioned. There was good hemostasis with no leakage of stool. The omentum was placed over the abdominal contents and the wound protector was removed. Next the entire staff changed gown and gloves and re-scrubbed in. The fascia was then closed with running 0 PDS sutures from the top and bottom meeting in the middle. The rest of the Exparel saline solution was used to anesthetize the incision and the subcutaneous space was irrigated and dried. Next the skin was closed with interrupted 4-0 Monocryl sutures. Steri-Strips and bandages were then applied. Patient tolerated the procedure well was brought to PACU in stable condition. - Admit VTE Documentation VTE Mechan Device Prophylaxis: SCD's
[2019-11-18] MEDS: Ketorolac 15 MG/ML Vial IV ×2 (14:15→21:17)
--- NOTE | 2019-11-18 14:19 | CASEMGMT ---
RN CM Assessment Presentation: Lap R hemicolectomy with anastomosis Intro role of CM and purpose of RN CM assessment to pt, and daughter. Demographics, PCP and Pharmacy verified. Plan is for pt to return home on dc with family support. Per pt/family, he was independent prior to admission, no previous care needs. Did not use ambulatory DME. PCP: Dr. Chan Specialists: Dr. Zhou Preferred Pharmacy: [facility] Insurance: [facility] Prescription Benefit: yes LNOK: , Dina Chan Living Arrangements: Lives in split level home 5 steps to main area. Pt plans to stay on ground floor which has bedroom, bath and family room until able to navigate stairs well. Was independent prior to admission, no care needs prior. Pt's and daughter are willing to assist with meals, care needs. Transportation: family can drive pt until he is able. DME: cane HHC/SNF: none Patient DC goals: Home DC PLAN: Home on discharge with family support. Sal PASTRANAN RN ACM
[2019-11-18] MEDS: BENZOCAINE/MENTHOL 1 LOZENGE 2 LOZENGE MUCOUS MEM ×2 (15:31→21:28)
[2019-11-18] MEDS: Docusate Sodium 100 MG Capsule PO (21:17)
[2019-11-18] MEDS: Pantoprazole Sodium 20 MG Tablet PO (21:17)
[2019-11-19 02:11] VITALS: BP 112/53; PULSE 62; RESP 18; TEMP 37.1; O2SAT 92
[2019-11-19] MEDS: Acetaminophen 500 MG Tablet 1000 MG PO ×3 (05:34→18:06)
[2019-11-19] MEDS: Ketorolac 15 MG/ML Vial IV ×3 (05:37→22:25)
[2019-11-19 06:41] LABS: Hematocrit 27.9 % (40-54); Hemoglobin 8.3 g/dL (13.0-16.5); Mean Corp Hgb Conc 29.7 g/dL (32-36); Mean Corpuscular Hgb 21.7 pg (27.0-32.0); Mean Corpuscular Volume 72.8 fL (80-94); Mean Platelet Vol. 10.1 fl (6.2-12.0); Platelet Count 313 K/mm3 (150-450); RBC Distribution Width CV 17.1 % (11.6-14.6); Red Blood Count 3.83 M/mm3 (4.6-6.2); White Blood Count 9.8 K/mm3 (4.4-11.0)
[2019-11-19 07:02] LABS: Anion Gap 7 (5-15); BUN 15 mg/dL (7-18); Calcium,Total 8.2 mg/dL (8.5-10.1); Chloride 108 mmol/L (98-107); Creatinine, Serum 1.66 mg/dL (0.70-1.30); EST Glomerular Filtration Rate 43 mL/min (>60); Est Glom Filt Rate - Afr Amer 52 mL/min (>60); Estimated Creatinine Clearance 35.23 ml/min; Glucose 157 mg/dL (74-106); Potassium 3.4 mmol/L (3.5-5.1); Sodium Level 139 mmol/L (136-145)
[2019-11-19] MEDS: Pantoprazole Sodium 40 MG Tablet PO (07:49)
[2019-11-19] MEDS: Potassium Chloride 10mEq/100mL 10 MEQ/100 ML IV.SOLN. 80 MEQ IV BOLUS ×3 (08:31→10:50)
[2019-11-19] MEDS: Calcium Carbonate 500 MG Tablet 1000 MG PO (09:30)
[2019-11-19 09:42] VITALS: BP 125/79; PULSE 70; RESP 18; TEMP 37; O2SAT 95
[2019-11-19] MEDS: Enoxaparin 40 MG/0.4 ML Syringe SC (10:16)
[2019-11-19] MEDS: Docusate Sodium 100 MG Capsule PO ×2 (10:17→22:24)
[2019-11-19] MEDS: Aspirin E.C. 81 MG Tablet PO (10:17)
[2019-11-19] MEDS: Loratadine 10 MG Tablet PO (10:17)
[2019-11-19] MEDS: amLODIPine 10 MG Tablet PO (10:17)
--- NOTE | 2019-11-19 10:20 | PN.SURG_ITS ---
Patient Problems: Active and Suspected Problems (Last Reviewed 11/14/19 @ 08:36 by Nhi Villarreal) Colon cancer (Acute) Subjective: Patient reports he is doing well. He is not passing any flatus yet. His abdomen is soft and nontender. He is not having any nausea or vomiting and he is tolerating clears. - Physical Exam Vitals/I&O's: Vital Signs Temp Pulse Resp BP Pulse Ox 98.6 F 70 18 125/79 H 95 11/19/19 09:42 11/19/19 09:42 11/19/19 09:42 11/19/19 09:42 11/19/19 09:42 Oxygen Flow Rate (L/min) 6 Oxygen Delivery Method Room Air Weight: 197 lb Body Mass Index (BMI) 31.8 Intake and Output for Last 24 Hours 11/17/19 11/18/19 11/19/19 23:59 23:59 23:59 Intake Total 912.41 / 1312.41 1962.67 / 1962.67 Output Total 430 / 630 400 / 400 Balance 482.41 / 682.41 1562.67 / 1562.67 General: Alert Lungs: Normal air movement Cardiovascular: Regular rate, Regular Rhythm Abdomen: Soft, Non Tender, Non-Distended Laboratory Results 11/19/19 06:05: WBC 9.8, RBC 3.83 L, Hgb 8.3 L, Hct 27.9 L, MCV 72.8 L, MCH 21.7 L, MCHC 29.7 L, RDW Std Deviation 45.0 H, RDW Coeff of Lydia 17.1 H, Plt Count 313, MPV 10.1 11/19/19 06:05: Sodium 139, Potassium 3.4 L, Chloride 108 H, Carbon Dioxide 24.0, Anion Gap 7, BUN 15, Creatinine 1.66 H, Estim Creat Clear Calc 35.23, Est GFR (MDRD) Af Amer 52 L, Est GFR (MDRD) Non-Af 43 L, BUN/Creatinine Ratio 9.0 L, Glucose 157 H, Calcium 8.2 L Current Medications Acetaminophen (Tylenol) 1,000 mg PO Q6 [facility] Last Admin: 11/19/19 05:34 Dose: 1,000 mg Documented by: Amlodipine Besylate (Norvasc) 10 mg PO DAILY [facility] Last Admin: 11/19/19 10:17 Dose: 10 mg Documented by: Aspirin (Ecotrin) 81 mg PO DAILY@0800 [facility] Last Admin: 11/19/19 10:17 Dose: 81 mg Documented by: Calcium Carbonate (Tums) 1,000 mg PO Q6H PRN PRN PRN Reason: gi distress Last Admin: 11/19/19 09:30 Dose: 1,000 mg Documented by: Docusate Sodium (Colace) 100 mg PO BID [facility] Last Admin: 11/19/19 10:17 Dose: 100 mg Documented by: Enoxaparin Sodium (Lovenox) 40 mg SC DAILY [facility] Last Admin: 11/19/19 10:16 Dose: 40 mg Documented by: Lactated Ringer's () 1,000 mls @ 40 mls/hr IV .Q25H [facility] Stop: 11/19/19 10:31 Last Infusion: 11/19/19 08:45 Dose: 40 mls/hr Documented by: Sodium Chloride () 250 mls @ 15 mls/hr IV .[id number] PRN PRN Reason: Additional IVPB Infusion Potassium Chloride () 10 meq in 100 mls @ 100 mls/hr IV BOLUS Q1H [facility] Stop: 11/19/19 10:59 Last Admin: 11/19/19 09:39 Dose: 80 mls/hr Documented by: Insulin Human Lispro (Humalog Kwikpen (Bkc)) 0 unit SC Q4H PRN PRN; Protocol PRN Reason: BG >/= 180, SEE PROTOCOL Ketorolac Tromethamine (Toradol) 15 mg IV Q8 [facility] Stop: 11/20/19 06:01 Last Admin: 11/19/19 05:37 Dose: 15 mg Documented by: Loratadine (Claritin) 10 mg PO DAILY [facility] Last Admin: 11/19/19 10:17 Dose: 10 mg Documented by: Magnesium Oxide (Mag-Ox 400) 400 mg PO DAILY PRN PRN PRN Reason: Constipation Ondansetron HCl (Zofran Odt) 4 mg PO Q6H PRN PRN PRN Reason: NAUSEA Pantoprazole Sodium (Protonix) 40 mg PO DAILY [facility] Last Admin: 11/19/19 07:49 Dose: 40 mg Documented by: Sodium Chloride () 10 - 40 ml IV UD PRN PRN Reason: SALINE FLUSH Throat Lozenges (Cepacol Sore Throat Lozenge) 2 lozenge MUCOUS MEM Q2H PRN PRN PRN Reason: SORE THROAT Last Admin: 11/18/19 21:28 Dose: 2 lozenge Documented by: Medical Necessity - Tobacco Use Smoking Status: Never smoker Tobacco Use: Non-smoker Assessment/Plan All Active Problems (Last Reviewed 11/14/19 @ 08:36 by Nhi Villarreal) Positive colorectal cancer screening using Cologuard test (Acute) Colon cancer (Acute) Hx of cholecystectomy (Acute) Hx of appendectomy (Acute) Anemia (Acute) Heme positive stool (Acute) Dyslipidemia (Acute) CAD (coronary artery disease) (Acute) Diabetes (Acute) Fatigue (Acute) 74-year-old male status post laparoscopic converted to open right hemicolectomy for colon cancer 1. Patient appears to be doing well. He had a slight bump in his creatinine but his urine was borderline normal. I will give him a 500 cc bolus. I will remove his [place]yer. His potassium is low and will be replaced. Continue clear liquids until he is passing flatus. His pain is well controlled with no narcotics. Encourage ambulation and incentive spirometer. Giancarlo Zhou MD Pager: [facility] [address] [place] [address], [address] [place] [address] Office:
[2019-11-19 10:22] VITALS: O2SAT 96
[2019-11-19] MEDS: 0.9% Saline Lock 10 ML Syringe IV ×2 (13:57→22:25)
[2019-11-19 16:31] VITALS: BP 129/70; PULSE 66; RESP 18; TEMP 37.2; O2SAT 98
[2019-11-19 20:19] VITALS: BP 122/63; PULSE 67; RESP 18; TEMP 37.1; O2SAT 97
[2019-11-20] MEDS: Acetaminophen 500 MG Tablet 1000 MG PO ×2 (00:21→06:02)
[2019-11-20 04:28] VITALS: BP 105/53; PULSE 69; RESP 16; TEMP 37.2; O2SAT 96
[2019-11-20] MEDS: 0.9% Saline Lock 10 ML Syringe IV (06:03)
[2019-11-20] MEDS: Ketorolac 15 MG/ML Vial IV (06:03)
[2019-11-20 07:44] LABS: Absolute Lymphocyte Count 1.68 X10^3/uL (0.83-4.51); Absolute Neutrophil Count 7.4 X10^3/uL (2.0-7.7); Basophil# 0.02 X10^3/uL; Basophil% 0.2 % (0-1); Eosinophil# 0.45 X10^3/uL; Eosinophils% 4.4 % (0-5); Hematocrit 27.4 % (40-54); Lymphocyte # 1.68 X10^3/ul (4.0); Lymphocyte % 16.5 % (19-41); Mean Corp Hgb Conc 29.2 g/dL (32-36); Mean Corpuscular Hgb 21.8 pg (27.0-32.0); Mean Corpuscular Volume 74.7 fL (80-94); Mean Platelet Vol. 10.5 fl (6.2-12.0); Monocyte# 0.61 X10^3/uL; NRBC Flagged by Analyzer 0 % (0-5); Neutrophil # 7.36 X10^3/uL (2.7-7.7); Neutrophil % 72.5 % (47-70); Platelet Count 322 K/mm3 (150-450); RBC Distribution Width SD 45.8 fl (35.1-43.9); Red Blood Count 3.67 M/mm3 (4.6-6.2); White Blood Count 10.2 K/mm3 (4.4-11.0)
[2019-11-20 07:48] LABS: Anion Gap 7 (5-15); BUN 13 mg/dL (7-18); BUN/Creat Ratio 9.6 RATIO (10-20); Calcium,Total 8.2 mg/dL (8.5-10.1); Chloride 115 mmol/L (98-107); Creatinine, Serum 1.35 mg/dL (0.70-1.30); EST Glomerular Filtration Rate 55 mL/min (>60); Est Glom Filt Rate - Afr Amer 66 mL/min (>60); Estimated Creatinine Clearance 43.32 ml/min; Glucose 118 mg/dL (74-106); Potassium 3.9 mmol/L (3.5-5.1); Sodium Level 143 mmol/L (136-145)
[2019-11-20 08:04] VITALS: O2SAT 96
--- NOTE | 2019-11-20 08:08 | PN.SURG_ITS ---
Patient Problems: Active and Suspected Problems (Last Reviewed 11/14/19 @ 08:36 by Nhi Villarreal) Colon cancer (Acute) Subjective: Patient is doing well and tolerating clear liquid diet. He is having minimal abdominal pain and it is well controlled. He is passing flatus. - Physical Exam Vitals/I&O's: Vital Signs Temp Pulse Resp BP Pulse Ox 99 F 69 16 105/53 L 96 11/20/19 04:28 11/20/19 04:28 11/20/19 04:28 11/20/19 04:28 11/20/19 08:04 Oxygen Flow Rate (L/min) 6 Oxygen Delivery Method Room Air Weight: 197 lb Body Mass Index (BMI) 31.8 Intake and Output for Last 24 Hours 11/18/19 11/19/19 11/20/19 23:59 23:59 23:59 Intake Total 912.41 / 1312.41 3940.67 / 3940.67 100 / 100 Output Total 430 / 630 1360 / 1360 425 / 425 Balance 482.41 / 682.41 2580.67 / 2580.67 -325 / -325 General: Alert, Oriented x3 Lungs: Normal air movement Cardiovascular: Regular rate, Regular Rhythm Abdomen: Soft, Non Tender, Non-Distended, - - Incision clean dry and intact Laboratory Results 11/20/19 07:28: WBC 10.2, RBC 3.67 L, Hgb 8.0 L, Hct 27.4 L, MCV 74.7 L, MCH 21.8 L, MCHC 29.2 L, RDW Std Deviation 45.8 H, RDW Coeff of Lydia 17.0 H, Plt Count 322, MPV 10.5, Immature Gran % (Auto) 0.400, Neut % (Auto) 72.5 H, Lymph % (Auto) 16.5 L, [place] % (Auto) 6.0, Eos % (Auto) 4.4, Baso % (Auto) 0.2, Absolute Neuts (auto) 7.4, Absolute Lymphs (auto) 1.68, Nucleated RBC % 0 11/20/19 07:28: Sodium 143, Potassium 3.9, Chloride 115 H, Carbon Dioxide 21.0, Anion Gap 7, BUN 13, Creatinine 1.35 H, Estim Creat Clear Calc 43.32, Est GFR (MDRD) Af Amer 66, Est GFR (MDRD) Non-Af 55 L, BUN/Creatinine Ratio 9.6 L, Glucose 118 H, Calcium 8.2 L Current Medications Acetaminophen (Tylenol) 1,000 mg PO Q6 [facility] Last Admin: 11/20/19 06:02 Dose: 1,000 mg Documented by: Amlodipine Besylate (Norvasc) 10 mg PO DAILY [facility] Last Admin: 11/19/19 10:17 Dose: 10 mg Documented by: Aspirin (Ecotrin) 81 mg PO DAILY@0800 [facility] Last Admin: 11/19/19 10:17 Dose: 81 mg Documented by: Calcium Carbonate (Tums) 1,000 mg PO Q6H PRN PRN PRN Reason: gi distress Last Admin: 11/19/19 09:30 Dose: 1,000 mg Documented by: Docusate Sodium (Colace) 100 mg PO BID [facility] Last Admin: 11/19/19 22:24 Dose: 100 mg Documented by: Enoxaparin Sodium (Lovenox) 40 mg SC DAILY [facility] Last Admin: 11/19/19 10:16 Dose: 40 mg Documented by: Sodium Chloride () 250 mls @ 15 mls/hr IV .[id number] PRN PRN Reason: Additional IVPB Infusion Sodium Chloride () 250 mls @ 15 mls/hr IV .[id number] PRN PRN Reason: Saline Flush Sodium Chloride () 250 mls @ 15 mls/hr IV .[id number] PRN PRN Reason: Additional IVPB Infusion Ibuprofen (Motrin) 600 mg PO Q6H PRN PRN PRN Reason: Pain Score 1-10/10 Insulin Human Lispro (Humalog Kwikpen (Bkc)) 0 unit SC Q4H PRN PRN; Protocol PRN Reason: BG >/= 180, SEE PROTOCOL Loratadine (Claritin) 10 mg PO DAILY [facility] Last Admin: 11/19/19 10:17 Dose: 10 mg Documented by: Magnesium Oxide (Mag-Ox 400) 400 mg PO DAILY PRN PRN PRN Reason: Constipation Ondansetron HCl (Zofran Odt) 4 mg PO Q6H PRN PRN PRN Reason: NAUSEA Pantoprazole Sodium (Protonix) 40 mg PO DAILY [facility] Last Admin: 11/19/19 07:49 Dose: 40 mg Documented by: Sodium Chloride () 10 - 40 ml IV UD PRN PRN Reason: SALINE FLUSH Last Admin: 11/20/19 06:03 Dose: 10 ml Documented by: Sodium Chloride () 10 - 40 ml IV UD PRN PRN Reason: SALINE FLUSH Throat Lozenges (Cepacol Sore Throat Lozenge) 2 lozenge MUCOUS MEM Q2H PRN PRN PRN Reason: SORE THROAT Last Admin: 11/18/19 21:28 Dose: 2 lozenge Documented by: Medical Necessity - Tobacco Use Smoking Status: Never smoker Tobacco Use: Non-smoker Assessment/Plan All Active Problems (Last Reviewed 11/14/19 @ 08:36 by Nhi Villarreal) Positive colorectal cancer screening using Cologuard test (Acute) Colon cancer (Acute) Hx of cholecystectomy (Acute) Hx of appendectomy (Acute) Anemia (Acute) Heme positive stool (Acute) Dyslipidemia (Acute) CAD (coronary artery disease) (Acute) Diabetes (Acute) Fatigue (Acute) 74-year-old male status post right hemicolectomy 1. Patient is doing well. I will advance him to a transitional diet. If he tolerates this he may be discharged home. Giancarlo Zhou MD Pager: [facility] [address] [place] [address], [address] [place] [phone] Office:
--- NOTE | 2019-11-20 08:09 | DCINST_ITS ---
- Discharge Diagnoses Current Active Problems: Current Active and Chronic Problems (Last Reviewed 11/14/19 @ 08:36 by Nhi Villarreal) Colon cancer (Acute) You will use the following diet at home:: Regular Your food should be the consistency of: Regular Discharge Activity: May Shower Lifting Restrictions: 20 lbs for 4 weeks Call your doctor if your incision/area has: Continuous Slow Oozing, Sudden Increased Bleeding, Increased Pain/ Swelling, Increased Redness, Foul Smelling Discharge, Swelling at the incision site Call your doctor if you observe: Fever of 101 or Higher Cleanse incision/area with: Soap & Water Allergies/Adverse Reactions: Allergies acetaminophen [From Tylenol] Allergy (Verified 11/17/19 08:44) rash with prolong use Medications to take at Discharge amlodipine 10 mg tablet 10 mg PO DAILY 11/03/19 ascorbate calcium (vitamin C) 500 mg tablet 500 mg PO DAILY 11/03/19 aspirin 81 mg tablet,delayed release 81 mg PO DAILY 11/03/19 beta carotene 25,000 unit capsule 25,000 unit PO DAILY 11/03/19 cholecalciferol (vitamin D3) 1,000 unit capsule 1,000 unit PO DAILY 11/03/19 loratadine 10 mg tablet 10 mg PO DAILY 11/03/19 lutein 25 mg-zeaxanthin 5 mg capsule 1 cap PO QDAY cap 11/03/19 lysine 500 mg tablet 500 mg PO DAILY 11/03/19 omeprazole 20 mg tablet,delayed release 20 mg PO DAILY 11/03/19 saw palmetto 160 mg capsule 160 mg PO DAILY cap 11/03/19 vitamin E (dl, acetate) 400 unit capsule 400 unit PO DAILY 11/03/19 Acetaminophen [Tylenol] 650 mg PO Q6H PRN PRN tablet 11/20/19 Primary Care Physician: Matteo Chan DO [Primary Care Provider] - Test Results: Test results from this visit will be discussed in further detail at your follow- up appointment, if applicable. Please Follow Up With: Giancarlo Zhou MD When: Please call to schedule 2 week follow up appointment. [phone]
--- NOTE | 2019-11-20 08:11 | DS.PCM_ITS ---
Discharge Date and Diagnosis - Problem List Patient Problems: Active and Suspected Problems (Last Reviewed 11/14/19 @ 08:36 by Nhi Villarreal) Colon cancer (Acute) Date of Admission: 11/18/19 Date of Discharge: 11/20/19 - Primary Discharge Diagnosis Active and Suspected Problems (Last Reviewed 11/14/19 @ 08:36 by Nhi Villarreal) Colon cancer (Acute) - Secondary Discharge Diagnosis Chronic Problems (Last Reviewed 11/14/19 @ 08:36 by Nhi Villarreal) Hypertension (Chronic) History of gastroesophageal reflux (GERD) (Chronic) History of chronic cholecystitis (Chronic) History of acute pancreatitis (Chronic) Hospital Course and Treatment Operations: colectomy Procedures: None Summary of Care Provided: The patient is a 74 year old M presented for elective right hemicolectomy. After uneventful colectomy he was admitted to the floor and started on clear liquid diet. The following day he was passing flatus and his abdominal pain was well controlled without narcotics. The patient was advanced to a transitional diet and discharged home once tolerating a diet. Patient will follow-up in 1 week. Patient Problems: Active and Suspected Problems (Last Reviewed 11/14/19 @ 08:36 by Nhi Villarreal) Colon cancer (Acute) - Physical Exam Vitals/I&O's: Vital Signs Temp Pulse Resp BP Pulse Ox 99 F 69 16 105/53 L 96 11/20/19 04:28 11/20/19 04:28 11/20/19 04:28 11/20/19 04:28 11/20/19 08:04 Oxygen Flow Rate (L/min) 6 Oxygen Delivery Method Room Air Weight: 197 lb Body Mass Index (BMI) 31.8 Intake and Output for Last 24 Hours 11/18/19 11/19/19 11/20/19 23:59 23:59 23:59 Intake Total 912.41 / 1312.41 3940.67 / 3940.67 100 / 100 Output Total 430 / 630 1360 / 1360 425 / 425 Balance 482.41 / 682.41 2580.67 / 2580.67 -325 / -325 Laboratory Results 11/20/19 07:28: WBC 10.2, RBC 3.67 L, Hgb 8.0 L, Hct 27.4 L, MCV 74.7 L, MCH 21.8 L, MCHC 29.2 L, RDW Std Deviation 45.8 H, RDW Coeff of Lydia 17.0 H, Plt Count 322, MPV 10.5, Immature Gran % (Auto) 0.400, Neut % (Auto) 72.5 H, Lymph % (Auto) 16.5 L, [place] % (Auto) 6.0, Eos % (Auto) 4.4, Baso % (Auto) 0.2, Absolute Neuts (auto) 7.4, Absolute Lymphs (auto) 1.68, Nucleated RBC % 0 11/20/19 07:28: Sodium 143, Potassium 3.9, Chloride 115 H, Carbon Dioxide 21.0, Anion Gap 7, BUN 13, Creatinine 1.35 H, Estim Creat Clear Calc 43.32, Est GFR (MDRD) Af Amer 66, Est GFR (MDRD) Non-Af 55 L, BUN/Creatinine Ratio 9.6 L, Glucose 118 H, Calcium 8.2 L Current Medications Acetaminophen (Tylenol) 1,000 mg PO Q6 [facility] Last Admin: 11/20/19 06:02 Dose: 1,000 mg Documented by: Amlodipine Besylate (Norvasc) 10 mg PO DAILY [facility] Last Admin: 11/19/19 10:17 Dose: 10 mg Documented by: Aspirin (Ecotrin) 81 mg PO DAILY@0800 [facility] Last Admin: 11/19/19 10:17 Dose: 81 mg Documented by: Calcium Carbonate (Tums) 1,000 mg PO Q6H PRN PRN PRN Reason: gi distress Last Admin: 11/19/19 09:30 Dose: 1,000 mg Documented by: Docusate Sodium (Colace) 100 mg PO BID [facility] Last Admin: 11/19/19 22:24 Dose: 100 mg Documented by: Enoxaparin Sodium (Lovenox) 40 mg SC DAILY [facility] Last Admin: 11/19/19 10:16 Dose: 40 mg Documented by: Sodium Chloride () 250 mls @ 15 mls/hr IV .[id number] PRN PRN Reason: Additional IVPB Infusion Sodium Chloride () 250 mls @ 15 mls/hr IV .[id number] PRN PRN Reason: Saline Flush Sodium Chloride () 250 mls @ 15 mls/hr IV .[id number] PRN PRN Reason: Additional IVPB Infusion Ibuprofen (Motrin) 600 mg PO Q6H PRN PRN PRN Reason: Pain Score 1-10/10 Insulin Human Lispro (Humalog Kwikpen (Bkc)) 0 unit SC Q4H PRN PRN; Protocol PRN Reason: BG >/= 180, SEE PROTOCOL Loratadine (Claritin) 10 mg PO DAILY [facility] Last Admin: 11/19/19 10:17 Dose: 10 mg Documented by: Magnesium Oxide (Mag-Ox 400) 400 mg PO DAILY PRN PRN PRN Reason: Constipation Ondansetron HCl (Zofran Odt) 4 mg PO Q6H PRN PRN PRN Reason: NAUSEA Pantoprazole Sodium (Protonix) 40 mg PO DAILY [facility] Last Admin: 11/19/19 07:49 Dose: 40 mg Documented by: Sodium Chloride () 10 - 40 ml IV UD PRN PRN Reason: SALINE FLUSH Last Admin: 11/20/19 06:03 Dose: 10 ml Documented by: Sodium Chloride () 10 - 40 ml IV UD PRN PRN Reason: SALINE FLUSH Throat Lozenges (Cepacol Sore Throat Lozenge) 2 lozenge MUCOUS MEM Q2H PRN PRN PRN Reason: SORE THROAT Last Admin: 11/18/19 21:28 Dose: 2 lozenge Documented by: Discharge Activity: May Shower Call your doctor if your incision/area has: Continuous Slow Oozing, Sudden Increased Bleeding, Increased Pain/ Swelling, Increased Redness, Foul Smelling Discharge, Swelling at the incision site Call your doctor if you observe: Fever of 101 or Higher Cleanse incision/area with: Soap & Water Home Medications: Medications to take at Discharge amlodipine 10 mg tablet 10 mg PO DAILY 11/03/19 ascorbate calcium (vitamin C) 500 mg tablet 500 mg PO DAILY 11/03/19 aspirin 81 mg tablet,delayed release 81 mg PO DAILY 11/03/19 beta carotene 25,000 unit capsule 25,000 unit PO DAILY 11/03/19 cholecalciferol (vitamin D3) 1,000 unit capsule 1,000 unit PO DAILY 11/03/19 loratadine 10 mg tablet 10 mg PO DAILY 11/03/19 lutein 25 mg-zeaxanthin 5 mg capsule 1 cap PO QDAY cap 11/03/19 lysine 500 mg tablet 500 mg PO DAILY 11/03/19 omeprazole 20 mg tablet,delayed release 20 mg PO DAILY 11/03/19 saw palmetto 160 mg capsule 160 mg PO DAILY cap 11/03/19 vitamin E (dl, acetate) 400 unit capsule 400 unit PO DAILY 11/03/19 Acetaminophen [Tylenol] 650 mg PO Q6H PRN PRN tablet 11/20/19 Primary Care Physician: Matteo Chan DO [Primary Care Provider] - Please Follow Up With: Giancarlo Zhou MD When: Please call to schedule 2 week follow up appointment. [phone] Medical Necessity - Tobacco Use Smoking Status: Never smoker Tobacco Use: Non-smoker Meaningful Use Info Meaningful Use Diagnoses (Choose all that apply): None applicable
[2019-11-20 09:44] VITALS: BP 118/65; PULSE 66; RESP 16; TEMP 36.9; O2SAT 98
[2019-11-20] MEDS: Enoxaparin 40 MG/0.4 ML Syringe SC (09:46)
[2019-11-20] MEDS: Docusate Sodium 100 MG Capsule PO (09:46)
[2019-11-20] MEDS: Loratadine 10 MG Tablet PO (09:46)
[2019-11-20] MEDS: Aspirin E.C. 81 MG Tablet PO (09:47)
[2019-11-20] MEDS: amLODIPine 10 MG Tablet PO (09:47)
[2019-11-20] MEDS: Pantoprazole Sodium 40 MG Tablet PO (09:48)
== END 2019-11-20 11:05 | disposition home or self-care (01) | DRG 331 ==
LOC: ACINP 05:26 → MS2 11:04 → MS3 18:07
PROVIDERS: Admitting Provider Surgery; Family Provider Family Medicine; PCP Family Medicine; Referring Provider Surgery; Visit Provider Surgery
PROC: 0DTF0ZZ Resection of Right Large Intestine, Open Approach (ICD-10-PCS; CPT 44205; principal; 2019-11-18 07:10)
DX: C18.2 Malignant neoplasm of ascending colon (principal); Z53.31 Laparoscopic surgical procedure converted to open procedure
CPT/HCPCS: 36415; 80048; 82962; 85025; 85027; 86850; 86900; 86901; 88309; 93005; 99251; J7040; J7050; J7120; A4216; C1760; G0463; J2405

== ENCOUNTER → 2019-12-02 11:28 | Outpatient (CLI) | payer MEDICARE, OTHER, SELFPAY ==
[2019-12-02 10:36] VITALS: BMI 31.8
--- NOTE | 2019-12-02 11:35 | RAD_ITS ---
STUDY: X-RAY CHEST REASON FOR EXAM: Male, 74 years old. Staging colon ca., no chest complaints TECHNIQUE: PA and lateral views of the chest. COMPARISON: Previous study of 12/08/2011 FINDINGS: The lungs are clear and expanded. There is no demonstrated pleural abnormality. Normal size heart. Normal mediastinum and lilly. Normal visualized pulmonary arteries. Normal visualized aortic arch and descending thoracic aorta. Normal visualized thoracic spine. Normal visualized ribs, clavicles, and shoulders. Several small wire coils are seen in the left upper quadrant of the abdomen. RAD/Chest PA and Lateral IMPRESSION: No acute cardiopulmonary disease process is noted. No pulmonary mass or nodular lesion is seen. Electronically Signed: Modesto Ames MD at 23:28 EST , Service support ,
== END ==
PROVIDERS: Family Provider Family Medicine; PCP Family Medicine; Referring Provider Internal Medicine Medical Oncology; Visit Provider Internal Medicine Medical Oncology
DX: C18.9 Malignant neoplasm of colon, unspecified (principal)
CPT/HCPCS: 71046

== ENCOUNTER → 2020-05-25 08:16 | Outpatient (CLI) | payer MEDICARE, OTHER, SELFPAY ==
[2019-12-02 10:36] VITALS: BMI 31.8
--- NOTE | 2020-05-25 08:16 | CT_ITS ---
STUDY: CT ABDOMEN AND PELVIS WITH CONTRAST REASON FOR EXAM: Male, 75 years old. STAGING OF COLON CA, PARTIAL COLECTOMY, DB, HTN, KATTY, APPY RADIATION DOSAGE (If Supplied By Facility): CTDIvol = ( 10.85 ) mGy, DLP = ( 1198.05 ) mGycm TECHNIQUE: Transaxial images were obtained from the dome of the diaphragm to the symphysis pubis with oral contrast. IV 100mL Isovue-300 was administered. Sagittal and coronal images were reconstructed. Individualized dose optimization techniques were used for this CT. COMPARISON: Comparison is made with prior examination dated November 10, 2019. FINDINGS: The visualized lung bases are unremarkable. The visualized portions of the heart are within normal limits. There is decreased attenuation of the liver consistent with steatosis. There are surgical clips in the gallbladder fossa consistent with a prior cholecystectomy. There are multiple tiny benign calcified granulomata of the spleen. Normal pancreas. Normal bilateral adrenal glands. Normal right kidney. There is a 4 cm x 4.1 cm cyst in the lower pole of the left kidney. There is a small hiatal hernia. Normal small intestine. The patient is status post right hemicolectomy. Fecal material is seen in the region of the hepatic flexure. Mild residual increased markings in the surrounding peritoneal fat most likely postsurgical in nature. Scattered sigmoid diverticula. There is non-visualization of the appendix. There is diffuse atherosclerotic calcification of the abdominal aorta, without a demonstrated aneurysm. There is a duplicated inferior vena cava. The left-sided inferior vena cava joins the right inferior vena cava at the level of the renal lilly. Normal retroperitoneum. Normal urinary bladder. There are prostatic calcifications. The prostate measures 3.5 cm x 4.5 cm. Normal abdominal wall. There are mild degenerative changes of the visualized lumbar spine. CT/Abdomen/Pelvis W IV Cont ONLY IMPRESSION: Status post right hemicolectomy. The remainder of the examination is unchanged. Electronically Signed: Zafar Reyes, at 10:32 EDT , Service support ,
[2020-05-25 09:00] LABS: CREATININE FINGERSTICK 1.1 mg/dL (0.70-1.30); EGFR FINGERSTICK > 60.0000 mL/min (>60)
[2020-05-25 09:09] LABS: Absolute Lymphocyte Count 1.86 X10^3/uL (0.83-4.51); Absolute Neutrophil Count 3.6 X10^3/uL (2.0-7.7); Basophil# 0.02 X10^3/uL; Basophil% 0.3 % (0-1); Eosinophil# 0.38 X10^3/uL; Eosinophils% 5.9 % (0-5); Hematocrit 39.7 % (40-54); Hemoglobin 11.6 g/dL (13.0-16.5); Lymphocyte # 1.86 X10^3/ul (4.0); Lymphocyte % 29.1 % (19-41); Mean Corp Hgb Conc 29.2 g/dL (32-36); Mean Corpuscular Hgb 23.5 pg (27.0-32.0); Mean Corpuscular Volume 80.4 fL (80-94); Mean Platelet Vol. 9.9 fl (6.2-12.0); Monocyte# 0.51 X10^3/uL; NRBC Flagged by Analyzer 0 % (0-5); Neutrophil # 3.62 X10^3/uL (2.7-7.7); Neutrophil % 56.5 % (47-70); Platelet Count 296 K/mm3 (150-450); RBC Distribution Width CV 19.2 % (11.6-14.6); RBC Distribution Width SD 54.2 fl (35.1-43.9); Red Blood Count 4.94 M/mm3 (4.6-6.2); White Blood Count 6.4 K/mm3 (4.4-11.0)
[2020-05-25 09:37] LABS: AST(SGOT) 14 U/L (15-37); Alanine Aminotransfer ALT/SGPT 17 U/L (16-61); Albumin, Serum 3.6 g/dL (3.2-5.0); Alkaline Phosphatase 69 U/L (45-117); Anion Gap 6 (5-15); BUN 21 mg/dL (7-18); BUN/Creat Ratio 16.7 RATIO (10-20); Calcium,Total 8.4 mg/dL (8.5-10.1); Chloride 107 mmol/L (98-107); Creatinine, Serum 1.26 mg/dL (0.70-1.30); EST Glomerular Filtration Rate 59 mL/min (>60); Est Glom Filt Rate - Afr Amer 72 mL/min (>60); Ferritin 11 ng/mL (26-388); Globulin 3.5 g/dL (2.2-4.2); Glucose 119 mg/dL (74-106); Iron 27 ug/dL (65-175); Iron Binding Capacity,Total 440 ug/dL (250-450); PERCENT IRON SATURATION 6.1 % (15.0-55.0); Potassium 4.1 mmol/L (3.5-5.1); Protein, Total 7.1 g/dL (6.4-8.2); Sodium Level 137 mmol/L (136-145)
[2020-05-26 04:57] LABS: Carcinoembryonic Antigen 1.9 ng/mL (0.0-4.7)
== END ==
PROVIDERS: PCP Family Medicine; Referring Provider Internal Medicine Medical Oncology; Visit Provider Internal Medicine Medical Oncology
DX: C18.2 Malignant neoplasm of ascending colon (principal); D50.9 Iron deficiency anemia, unspecified
CPT/HCPCS: 36415; 74177; 80053; 82378; 82728; 83540; 83550; 85025; Q9967

== ENCOUNTER → 2020-09-10 09:39 | Outpatient (CLI) | payer MEDICARE, OTHER, SELFPAY ==
[2020-06-01 11:10] VITALS: BMI 30.2
[2020-09-10 13:09] LABS: Cholesterol 146 mg/dL (200); High Density Lipoprotein 39 mg/dL; Triglycerides 76 mg/dL; Very Low Density Lipoprotein 15 mg/dL (5-40)
== END ==
PROVIDERS: PCP Family Medicine; Visit Provider Family Medicine
DX: E11.9 Type 2 diabetes mellitus without complications (principal)
CPT/HCPCS: 36415; 80061; 83036

== ENCOUNTER → 2020-10-20 08:22 | Outpatient (CLI) | payer MEDICARE, OTHER, SELFPAY ==
[2019-12-02 10:36] VITALS: BMI 31.8
[2020-10-12 13:05] VITALS: BMI 28.5
--- NOTE | 2020-10-20 08:23 | CT_ITS ---
STUDY: CT ABDOMEN AND PELVIS WITH CONTRAST REASON FOR EXAM: Male, 75 years old. COLON CANCER -MONITORING. PARTIAL COLECTOMY ONLY. APPENDECTOMY AND CHOLECYSTECTOMY RADIATION DOSAGE (If Supplied By Facility): CTDIvol = ( 7.83 ) mGy, DLP = ( 1117.12 ) mGycm TECHNIQUE: Transaxial images were obtained from the dome of the diaphragm to the symphysis pubis with oral contrast. 100 mL ISOVUE-300 was administered. Sagittal and coronal images were reconstructed. Individualized dose optimization techniques were used for this CT. COMPARISON: 05/25/2020 FINDINGS: The visualized lung bases are unremarkable. The visualized portions of the heart are within normal limits. Normal liver. There are surgical clips in the gallbladder fossa consistent with a prior cholecystectomy with remnant gallbladder are stable. Normal spleen. Normal pancreas. Normal bilateral adrenal glands. Normal right kidney. Left renal cyst is stable. No suspicious renal cysts or solid masses. No hydronephrosis. There is a small hiatal hernia. Normal small intestine. There is scattered colonic diverticula. No colonic wall thickening. Right hemicolectomy noted. There is non-visualization of the appendix. There is diffuse atherosclerotic calcification of the abdominal aorta, without a demonstrated aneurysm. Partially duplicated IVC noted. Normal retroperitoneum. Normal urinary bladder. Normal abdominal wall. There are diffuse degenerative changes of the visualized lumbar spine. CT/Abdomen/Pelvis WITH Contrast IMPRESSION: 1. Since 05/25/2020, stable exam. Right hemicolectomy. No intra-abdominal/pelvic mass/metastasis. Electronically Signed: Jace Urena MD ([place]) at 12:30 EST , Service support ,
[2020-10-20 08:36] LABS: CREATININE FINGERSTICK 1.2 mg/dL (0.70-1.30); EGFR FINGERSTICK > 60.0000 mL/min (>60)
== END ==
PROVIDERS: PCP Family Medicine; Referring Provider Internal Medicine Medical Oncology; Visit Provider Internal Medicine Medical Oncology
DX: C18.9 Malignant neoplasm of colon, unspecified (principal)
CPT/HCPCS: 74177; Q9967

== ENCOUNTER 2020-11-05 08:04 | Day surgery (SDC) | payer MEDICARE, OTHER, SELFPAY ==
[2020-10-12 13:05] VITALS: BMI 28.5
[2020-11-02 15:34] VITALS: BMI 31.8
[2020-11-05] VITALS (8 sets, daily range): BP systolic 86–118; BP diastolic 52–73; PULSE 52–61; RESP 16–20; TEMP 36.3–36.4; O2SAT 95–98; BMI 30.6
[2020-11-05] MEDS: Lactated Ringers 1,000 ML 100 ML IV (08:50)
--- NOTE | 2020-11-05 09:00 | HP_ITS ---
Intake Vital Signs 10/12/20 Height 5 ft 7.5 in 10/12/20 Weight: 185 lb 10/12/20 BP 144/78 H 10/12/20 Blood Pressure Location Rt brachial 10/12/20 Position Sitting 10/12/20 Respiration 16 Intake Visit Reasons: 1 YEAR F/U TO SCHEDULE C-SCOPE Chief Complaint: c-scope Cloth Layer Required: No Is patient in pain?: No Allergies acetaminophen [From Tylenol] Allergy (Verified 10/12/20 13:06) rash with prolong use Medications amlodipine 10 mg tablet 10 mg PO DAILY 11/03/19 [History Confirmed 10/12/20] ascorbate calcium (vitamin C) 500 mg tablet 500 mg PO DAILY 11/03/19 [History Confirmed 10/12/20] aspirin 81 mg tablet,delayed release 81 mg PO DAILY 11/03/19 [History Confirmed 10/12/20] beta carotene 25,000 unit capsule 25,000 unit PO DAILY 11/03/19 [History Confirmed 10/12/20] cholecalciferol (vitamin D3) 25 mcg (1,000 unit) capsule 1,000 unit PO DAILY 11/03/19 [History Confirmed 10/12/20] loratadine 10 mg tablet 10 mg PO DAILY 11/03/19 [History Confirmed 10/12/20] lutein 25 mg-zeaxanthin 5 mg capsule 1 cap PO QDAY cap 11/03/19 [History Confirmed 10/12/20] lysine 500 mg tablet 500 mg PO DAILY 11/03/19 [History Confirmed 10/12/20] omeprazole 20 mg tablet,delayed release 20 mg PO DAILY 11/03/19 [History Confirmed 10/12/20] saw palmetto 160 mg capsule 160 mg PO DAILY cap 11/03/19 [History Confirmed 10/12/20] Acetaminophen [Tylenol] 650 mg PO Q6H PRN PRN tab 11/20/19 [Rx Confirmed 10/12/20] Vitamin E 400 unit PO DAILY 06/01/20 [History Confirmed 10/12/20] polysaccharide iron complex 150 mg iron capsule 150 mg PO BID cap 10/12/20 [History Confirmed 10/12/20] PFSH Medical History Colon cancer (Acute) Anemia (Acute) Heme positive stool (Acute) Dyslipidemia (Acute) Hypertension (Chronic) CAD (coronary artery disease) (Acute) Diabetes (Acute) Fatigue (Acute) History of gastroesophageal reflux (GERD) (Chronic) History of chronic cholecystitis (Chronic) History of acute pancreatitis (Chronic) Surgical History Hx of cholecystectomy (Acute) Hx of appendectomy (Acute) History of right hemicolectomy (Acute) Family History Sister Breast cancer Heart disease CVA (cerebral vascular accident) Father Heart disease Brother Heart disease Social History (Updated 10/12/20 @ 14:[address] Giancarlo Zhou MD) Smoking Status: Never smoker second hand exposure: No alcohol intake: never substance use type: does not use caffeine: No what type of physical activity do you participate in: none frequency: does not exercise HPI HPI HPI: ALEJANDRO MAYER, is a 75 M who presents to the office today for HPI HPI Surgical H&P: Yes HPI: ALEJANDRO MAYER, is a 75 M who presents to the office today for History of colon cancer. The patient is following up 1 year after colon resection for colon cancer. The patient is having no issues. ROS General General: Yes fatigue; no weight change Endo Endocrine: Yes diabetes mellitus Cardio Cardiovascular: Yes high blood pressure; no murmur, pacemaker, heart disease, atrial fibrillation, heart attack, heart stent, palpitations, shortness of breat with exertion or chest pain Psych Psychiatric: No depression or anxiety Resp Respiratory: No shortness of breath, No sleep apnea, No cough, No COPD, No asthma, No emphysema, No wheezing Gastro Gastrointestinal: No abdominal pain, No nausea or vomiting, No diarrhea, No constipation, Yes blood in stool, Yes acid reflux, No hemorrhoids, No ulcers, No gallbladder problem, No black,tarry stools Zhang Hematologic: Yes blood thinners, Yes anemia Exam Const General: cooperative Orientation: alert, oriented x3 Resp Effort & Inspection: normal respiratory effort Auscultation: clear to auscultation bilaterally Cardio Rate: regular rate Rhythm: regular rhythm Heart Sounds: no murmurs GI Inspection: non-distended Palpation: soft, nontender Assessment & Plan Problems 1. Malignant neoplasm of ascending colon C18.2 Plan Patient has a history of colon cancer and had a colon resection 1 year ago. He is here for follow-up colonoscopy. He has had no issues in the interim. He had a CEA and CT scan which did not indicate recurrence. Plan for surveillance colonoscopy. I explained endoscopy in detail to the patient. I explained the risks including but not limited to stroke or heart attack with anesthesia, perforation of the GI tract, bleeding, infection. I explained that any of these could necessitate further emergency surgery. The patient understands and all questions were answered sufficiently. The patient wishes to proceed with procedure. We discussed the current risks associated with COVID-19. While it is understood that there is a community spread of COVID-19, the risk of esau COVID-19 while at [facility] ([facility]) is very low; however, the risk cannot be completely mitigated because of the community spread of the disease. We discussed in detail the risk of exposure to and/or potential harm posed by the COVID-19 virus with having a surgery/procedure at this time versus the risk of delaying the surgery/procedure. It is not possible to know either the risk of delaying the surgery or procedure or chance of getting an infection with perfect accuracy, but a joint decision was made to proceed at this time with the scheduled surgery/procedure as indicated on the consent form. Patient was notified that we will need to comply with any screening or testing [facility] wishes to perform or that surgery may be delayed for any positive results. Giancarlo Zhou MD Pager: [facility] [address] [place] [address], [address] [place] [address] Office: Orders Orders: Colonoscopy Today C18.9 Coding Level of Care Code Off vis,est,level 3 Diagnoses Malignant neoplasm of ascending colon C18.2 ??Colon location: ascending I have re-examined the patient. There are no clinical changes since date of exam.
--- NOTE | 2020-11-05 09:17 | OP.COLON_ITS ---
Patient Name: Dougie Chan Procedure Date: 11/05/2020 8:56 AM Date of : 1945 Age: 75 Procedure: Colonoscopy Indications: High risk colon cancer surveillance: Personal history of colon cancer Providers: Giancarlo Zhou MD Referring MD: Matteo Chan Medicines: Monitored Anesthesia Care Patient Profile: This is a 75 year old male. Refer to note in patient chart for documentation of history and physical. Last Colonoscopy: 1 year ago. Complications: No immediate complications. Procedure: Pre-Anesthesia Assessment: - Prior to the procedure, a History and Physical was performed, and patient medications and allergies were reviewed. The patient's tolerance of previous anesthesia was also reviewed. The risks and benefits of the procedure and the sedation options and risks were discussed with the patient. All questions were answered, and informed consent was obtained. Prior Anticoagulants: The patient has taken no previous anticoagulant or antiplatelet agents. After reviewing the risks and benefits, the patient was deemed in satisfactory condition to undergo the procedure. After I obtained informed consent, the scope was passed under direct vision. Throughout the procedure, the patient's blood pressure, pulse, and oxygen saturations were monitored continuously. The pediatric colonoscope was introduced through the anus and advanced to the ileocolonic anastomosis. The colonoscopy was performed without difficulty. The patient tolerated the procedure well. The quality of the bowel preparation was good. Scope In: 9:06:20 AM Scope Withdrawal Time 0 hours 3 minutes 10 seconds Scope Out: 9:12:22 AM Total Procedure Duration Time 0 hours 6 minutes 2 seconds Findings: The entire examined colon appeared normal on direct and retroflexion views. Impression: - The entire examined colon is normal on direct and retroflexion views. - No specimens collected. Recommendation: - Discharge patient to home. - Resume previous diet. - Continue present medications. - Repeat colonoscopy in 1 year for surveillance based on personal history of colon cancer. Procedure Code(s): --- Professional --- 49676, Colonoscopy, flexible; diagnostic, including collection of specimen(s) by brushing or washing, when performed (separate procedure) Diagnosis Code(s): --- Professional --- Z85.038, Personal history of other malignant neoplasm of large intestine CPT copyright 2017 [employer]. All rights reserved. The codes documented in this report are preliminary and upon insert molding operator review may be revised to meet current compliance requirements. Giancarlo Zhou MD 11/05/2020 9:17:00 AM This report has been signed electronically. Number of Addenda: 0 Note Initiated On: 11/05/2020 8:56 AM
--- NOTE | 2020-11-05 09:18 | OP.CCLET_ITS ---
11/05/2020 Matteo Chan [address] [place] [address] Re : Colonoscopy procedure for Dougie Chan Dear Dr. Chan This procedure was performed on Thursday, November 05, 2020. My impressions and recommendations are as follows: Impressions : - The entire examined colon is normal on direct and retroflexion views. - No specimens collected. Recommendations : - Discharge patient to home. - Resume previous diet. - Continue present medications. - Repeat colonoscopy in 1 year for surveillance based on personal history of colon cancer. My findings are described in the full procedure note, which is enclosed. If I can be of further assistance, please feel free to contact me at Doctor phone number(s): , Work: . Sincerely, Giancarlo Zhou MD 11/05/2020 9:17:00 AM This report has been signed electronically.
== END 2020-11-05 10:15 | disposition home or self-care (01) ==
LOC: EN 08:05 → AC 08:05
PROVIDERS: PCP Family Medicine; Referring Provider Family Medicine; Visit Provider Surgery
PROC: 0DJD8ZZ Inspection of Lower Intestinal Tract, Via Natural or Artificial Opening Endoscopic (ICD-10-PCS; CPT 45378; principal; 2020-11-05 09:10)
DX: Z85.038 Personal history of other malignant neoplasm of large intestine (principal); Z20.828 Contact with and (suspected) exposure to other viral communicable diseases; I10 Essential (primary) hypertension; E78.5 Hyperlipidemia, unspecified; I25.10 Atherosclerotic heart disease of native coronary artery without angina pectoris; E11.9 Type 2 diabetes mellitus without complications; K21.9 Gastro-esophageal reflux disease without esophagitis; Z87.19 Personal history of other diseases of the digestive system; Z79.82 Long term (current) use of aspirin; Z79.899 Other long term (current) drug therapy
CPT/HCPCS: 45378; 87426; C9803; J7120; J2405

== ENCOUNTER → 2021-04-28 12:46 | Outpatient (CLI) | payer MEDICARE, OTHER, SELFPAY ==
[2020-11-05 08:33] VITALS: BMI 30.6
--- NOTE | 2021-04-28 12:48 | CT_ITS ---
STUDY: CT ABDOMEN AND PELVIS WITH CONTRAST REASON FOR EXAM: Male, 76 years old. COLON CANCER-MONITOR. Partial colectomy. RADIATION DOSAGE (If Supplied By Facility): CTDIvol = ( 16.23 ) mGy, DLP = ( 1256.61 ) mGycm TECHNIQUE: Transaxial images were obtained from the dome of the diaphragm to the symphysis pubis without oral contrast. Oral and amp;amp; IV Readi-CAT and amp;amp; 100mL Isovue-300 was administered. Sagittal and coronal images were reconstructed. Individualized dose optimization techniques were used for this CT. COMPARISON: Comparison is made with prior study dated 10/20/2020. FINDINGS: Stable minimal degree of increased linear markings at the bases suggestive of either mild atelectasis and/or scarring. Calcified left hilar lymph nodes. Coronary artery calcification. There is decreased attenuation of the liver consistent with steatosis. There are surgical clips in the gallbladder fossa consistent with a prior cholecystectomy. A small remnant gallbladder is seen. This is unchanged. Normal spleen. Normal pancreas. Normal bilateral adrenal glands. Normal right kidney. Stable cyst in the lower pole of the left kidney measuring 4.5 cm x 4.7 cm. There is a small hiatal hernia. Normal small intestine. The patient is status post right hemicolectomy. Scattered sigmoid diverticula. The patient is status post appendectomy. Normal abdominal aorta. 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 Normal retroperitoneum. Normal urinary bladder. There are prostatic calcifications. The prostate measures 4.2 cm x 4.9 cm. Normal abdominal wall. There are mild degenerative changes of the visualized lumbar spine. CT/Abdomen/Pelvis WITH Contrast IMPRESSION: Fatty infiltration of the liver. Status post cholecystectomy. Stable left renal cyst. Status post right hemicolectomy. Electronically Signed: Zafar Reyes MD at 13:49 EDT , Service support ,
[2021-04-28 13:01] LABS: CREATININE FINGERSTICK 1.5 mg/dL (0.70-1.30)
== END ==
PROVIDERS: PCP Family Medicine; Referring Provider Internal Medicine Medical Oncology; Visit Provider Internal Medicine Medical Oncology
DX: Z01.812 Encounter for preprocedural laboratory examination (principal); C18.9 Malignant neoplasm of colon, unspecified
CPT/HCPCS: 74177; Q9967

== ENCOUNTER 2021-09-30 07:44 | Day surgery (SDC) | payer MEDICARE, OTHER, SELFPAY ==
[2021-09-30 08:05] VITALS: BP 126/60; PULSE 77; RESP 18; TEMP 36.7; O2SAT 98; BMI 32.1
[2021-09-30] MEDS: Lactated Ringers 1,000 ML 15 ML IV (08:05)
--- NOTE | 2021-09-30 09:04 | HP.PCM_ITS ---
HPI - General [facility] Narrative ALEJANDRO MAYER, is a 76 M who presents for surveillance colonoscopy. The patient had colon cancer of the ascending colon in 2019 which was resected. Patient had yearly surveillance last year and is here for another yearly surveillance colonoscopy. He denies any blood in the stool or abdominal pain. [facility] Medical History (Updated 09/28/21 @ 09:07 by Pat Biggs) Anemia CAD (coronary artery disease) Colon cancer Dyslipidemia Heme positive stool History of acute pancreatitis History of chronic cholecystitis History of gastroesophageal reflux (GERD) History of stress test Hypertension Home Medications amlodipine 10 mg tablet 10 mg PO DAILY 11/03/19 [History Last Taken 11/05/20] aspirin 81 mg tablet,delayed release 81 mg PO DAILY 11/03/19 [History Last Taken 09/29/21 08:00] beta carotene 25,000 unit capsule 25,000 unit PO DAILY 11/03/19 [History Last Taken Unknown] cholecalciferol (vitamin D3) 25 mcg (1,000 unit) capsule 1,000 unit PO DAILY 11/03/19 [History Last Taken Unknown] lutein 25 mg-zeaxanthin 5 mg capsule 1 cap PO QDAY cap 11/03/19 [History Last Taken Unknown] lysine 500 mg tablet 500 mg PO DAILY 11/03/19 [History Last Taken Unknown] omeprazole 20 mg tablet,delayed release 20 mg PO DAILY 11/03/19 [History Last Taken 11/05/20] saw palmetto 160 mg capsule 160 mg PO DAILY cap 11/03/19 [History Last Taken Unknown] vitamin E 400 unit PO DAILY 06/01/20 [History Last Taken Unknown] Allergy/AdvReac Type Severity Reaction Status Date / Time acetaminophen [From Tylenol] AdvReac rash with Verified 09/30/21 08:09 prolong use and high doses Family History Sister Breast cancer Heart disease CVA (cerebral vascular accident) Father Heart disease Brother Heart disease Surgical History History of right hemicolectomy Hx of appendectomy Hx of cholecystectomy Social History Smoking Status: Never smoker second hand exposure: No alcohol intake: never substance use type: does not use caffeine: No what type of physical activity do you participate in: none frequency: does not exercise Past Medical/Surgical History Planned Operation Planned Operative Procedure/s: Colonoscopy OA S.O.S: No Previous Hospitalizations/Surgeries HX Hospitalizations: No HX of Surgeries: appendectomy gallbladder cscope egd/scope 10/2019 Any Problems With Anesthesia: No You/Your Family Experience Fever (Hyperthermia) With Anes: No Cholinesterase deficiency: No Cardiovascular Hx Chest Pain within Last 2 months: No Hx of Irregular Heartbeat and/or Afib: No Hx Heart Attack: No Hx Congestive Heart Failure: No Hx Rheumatic Fever: No Hx Hypertension: Yes Hx Internal Defibrillator: No Hx Pacemaker: No Hx Cardiac Catheterization: No Hx Cardiac Surgery/Stents/Etc.: No Hx Stress Test: Yes (11/06/19) Hx Pain in Legs when Walking/Leg Cramps: No Respiratory Chronic Cough: No HX of Shortness of Breath: Yes (sob currently d/t anemia) Hoarseness: No Hx Chronic Obstructive Pulmonary Disease (COPD): No Hx Asthma: No Hx Emphysema: No Hx Sleep Apnea: No Hx Respiratory Tract Infection/Cold (presently): No Do You Snore Loudly (louder than talking or can be heard): No Do You Often Feel Tired/ Fatigued/ Sleepy Dring Daytime?: No Has Anyone Observed You Stop Breathing During Sleep?: No Result (for STOP score): Negative Hx Smoking: No Smoking Status: Never smoker Gastrointestinal Hx Gastroesophageal Reflux: Yes Controlled With Meds: Yes Hx Gastrointestinal Disorders: No (colon mass) Hx Gastrointestinal Bleed: No Hx Ulcer: Yes (bleeding to esphogus 10 yrs ago) Hx Hiatal Hernia: No Difficulty Chewing/Swallowing: No Special diet followed at home: No Hx Unplanned Weight Loss of 20#: No HX Unplanned Weight Gain of 20#: No Neurological Hx Seizures: No HX Syncope/Blackout Spells/Unconsciousness: No Hx Transient Ischemic Attacks (TIA): No Hx Multiple Sclerosis: No Hx Parkinson's Disease: No Hx Head/Neck Injury: No Hx Headaches: No Hx Back Injury/Pain: No Recent Onset of Speech Difficulty: No Restless Legs: No Does patient have nerve stimulator: No Blood Disorder Hx Leukemia: No Bleeding Tendencies: No Hx Deep Vein Thrombosis: No Hx High Cholesterol: No Blood Transmitted Disease: No Hx Hepatitis: Yes (hep a in the late s) Hx Cirrhosis: No Hx Anemia: Yes (currently) Hx Blood Disorders: No Genitourinary Hx Renal Disease: No Hx Dialysis: No Musculoskeletal Hx Arthritis: No Hx Rheumatoid Arthritis: No Hx Gout: No Recent Onset of an Orthopedic Problem: No Endocrine Hx Diabetes: No (borderline at this time) Thyroid Disease: No Hx Steroid Therapy: No Psycho/Social Hx Substance Use: No Hx Alcohol Use: No Hx Anxiety: No Hx Depression: No Mental Illness: No Hx Dementia: No Miscellaneous Hx Cancer: Yes (colon) Recent Exposure to Contagious Disease: No Hx of C-Diff: No Any Loose Teeth: No Allergies acetaminophen [From Tylenol] Adverse Reaction (Verified 09/30/21 08:09) rash with prolong use and high doses Discharge Is Pt Admitted From a [facility], or a Half-Way: No After D/C, Where Do you Plan to Go: Return Home From the [facility] History Number of Risk Factors: 4 Vital Signs Vital Signs Vital Signs: 09/30/21 08:05 Temperature 98.1 F Temperature Source Temporal Pulse Rate 77 Respiratory Rate 18 Respiratory Pattern Normal Blood Pressure 126/60 H Blood Pressure Mean 82 Blood Pressure Source Monitor Blood Pressure Position Sitting Blood Pressure Location Left Arm Pulse Ox 98 Oxygen Delivery Method Room Air Weight Weight: 198 lb 13.711 oz Body Mass Index (BMI) 32.1 Physical Exam Const alert and oriented x3 Resp normal respiratory effort and normal air movement Cardio regular rate and regular rhythm GI soft to palpation, non-tender and non-distended Assessment & Plan Assessment/Plan (1) History of colon cancer in adulthood: PLAN: Patient history of colon cancer of the ascending colon and requires surveillance colonoscopy. I explained endoscopy in detail to the patient. I explained the risks including but not limited to stroke or heart attack with anesthesia, perforation of the GI tract, bleeding, infection. I explained that any of these could necessitate further emergency surgery. The patient understands and all questions were answered sufficiently. The patient wishes to proceed with procedure. Giancarlo Zhou MD Pager: [facility] [address] [place] [address], [address] [place] [address] Office: Surgery Risks - Colonoscopy Risks Include but are not Limited To: Risks include but are not limited to: Bleeding, perforation requiring further surgery, inability to complete colonoscopy requiring barium enema.
--- NOTE | 2021-09-30 09:26 | OP.COLON_ITS ---
Patient Name: Dougie Chan Procedure Date: 09/30/2021 9:05 AM Date of : 1945 Age: 76 Procedure: Colonoscopy Indications: High risk colon cancer surveillance: Personal history of colon cancer Providers: Giancarlo Zhou MD Referring MD: Giancarlo Zhou MD Medicines: Monitored Anesthesia Care Patient Profile: This is a 76 year old male. Refer to note in patient chart for documentation of history and physical. Last Colonoscopy: 1 year ago. Complications: No immediate complications. Procedure: Pre-Anesthesia Assessment: - Prior to the procedure, a History and Physical was performed, and patient medications and allergies were reviewed. The patient's tolerance of previous anesthesia was also reviewed. The risks and benefits of the procedure and the sedation options and risks were discussed with the patient. All questions were answered, and informed consent was obtained. Prior Anticoagulants: The patient has taken no previous anticoagulant or antiplatelet agents. After reviewing the risks and benefits, the patient was deemed in satisfactory condition to undergo the procedure. After I obtained informed consent, the scope was passed under direct vision. Throughout the procedure, the patient's blood pressure, pulse, and oxygen saturations were monitored continuously. The adult colonoscope was introduced through the anus and advanced to the ileocolonic anastomosis. The colonoscopy was performed without difficulty. The patient tolerated the procedure well. The quality of the bowel preparation was good. Scope In: 9:18:57 AM Scope Withdrawal Time 0 hours 2 minutes 58 seconds Scope Out: 9:23:56 AM Total Procedure Duration Time 0 hours 4 minutes 59 seconds Findings: The entire examined colon appeared normal on direct and retroflexion views. Impression: - The entire examined colon is normal on direct and retroflexion views. - No specimens collected. Recommendation: - Discharge patient to home. - Resume previous diet. - Continue present medications. - Repeat colonoscopy in 1 year for surveillance. Procedure Code(s): --- Professional --- G0105, Colorectal cancer screening; colonoscopy on individual at high risk Diagnosis Code(s): --- Professional --- Z85.038, Personal history of other malignant neoplasm of large intestine CPT copyright 2017 [employer]. All rights reserved. The codes documented in this report are preliminary and upon personal development mentor review may be revised to meet current compliance requirements. Giancarlo Zhou MD 09/30/2021 9:26:22 AM This report has been signed electronically. Number of Addenda: 0 Note Initiated On: 09/30/2021 9:05 AM
--- NOTE | 2021-09-30 09:27 | OP.CCLET_ITS ---
09/30/2021 Matteo Chan [address] [place] [address] Re : Colonoscopy procedure for Dougie Chan Dear Dr. Chan This procedure was performed on Thursday, September 30, 2021. My impressions and recommendations are as follows: Impressions : - The entire examined colon is normal on direct and retroflexion views. - No specimens collected. Recommendations : - Discharge patient to home. - Resume previous diet. - Continue present medications. - Repeat colonoscopy in 1 year for surveillance. My findings are described in the full procedure note, which is enclosed. If I can be of further assistance, please feel free to contact me at Doctor phone number(s): , Work: . Sincerely, Giancarlo Zhou MD 09/30/2021 9:26:22 AM This report has been signed electronically.
[2021-09-30 09:30] VITALS: BP 126/60; BP 96/41; PULSE 65; RESP 14; TEMP 36.4; O2SAT 95
[2021-09-30 09:35] VITALS: BP 102/45; BP 126/60; PULSE 60; RESP 16; O2SAT 95
[2021-09-30 09:40] VITALS: BP 104/48; BP 126/60; PULSE 58; RESP 16; O2SAT 94
[2021-09-30 09:45] VITALS: BP 107/49; BP 126/60; PULSE 54; RESP 16; TEMP 36.1; O2SAT 94
[2021-09-30 09:59] VITALS: BP 126/60
== END 2021-09-30 10:13 | disposition home or self-care (01) ==
LOC: EN 07:44 → AC 07:45
PROVIDERS: PCP Family Medicine; Referring Provider Surgery; Visit Provider Surgery
PROC: 0DJD8ZZ Inspection of Lower Intestinal Tract, Via Natural or Artificial Opening Endoscopic (ICD-10-PCS; CPT 45378; principal; 2021-09-30 08:40)
DX: Z12.11 Encounter for screening for malignant neoplasm of colon (principal); Z85.038 Personal history of other malignant neoplasm of large intestine; D64.9 Anemia, unspecified; I10 Essential (primary) hypertension; E78.5 Hyperlipidemia, unspecified; I25.10 Atherosclerotic heart disease of native coronary artery without angina pectoris; K21.9 Gastro-esophageal reflux disease without esophagitis; Z87.19 Personal history of other diseases of the digestive system; Z90.49 Acquired absence of other specified parts of digestive tract; Z79.82 Long term (current) use of aspirin; Z79.899 Other long term (current) drug therapy
CPT/HCPCS: G0105; 87426; C9803; J7120; J2405

== ENCOUNTER → 2021-10-24 12:30 | Outpatient (CLI) | payer MEDICARE, OTHER, SELFPAY ==
--- NOTE | 2021-10-24 12:32 | CT_ITS ---
STUDY: CT ABDOMEN AND PELVIS WITH CONTRAST REASON FOR EXAM: Male, 76 years old. MONITOR-COLON CANCER. Prior right hemicolectomy. RADIATION DOSAGE (If Supplied By Facility): CTDIvol = ( 20.27 ) mGy, DLP = ( 1173.38 ) mGycm TECHNIQUE: Transaxial images were obtained from the dome of the diaphragm to the symphysis pubis with oral contrast. Oral and amp; IV Readi-CAT and amp; 100mL Isovue-370 was administered. Sagittal and coronal images were reconstructed. Individualized dose optimization techniques were used for this CT. COMPARISON: Comparison is made with prior study dated 04/28/2021. FINDINGS: The visualized lung bases are unremarkable. The visualized portions of the heart are within normal limits. There is decreased attenuation of the liver consistent with steatosis. There are surgical clips in the gallbladder fossa consistent with a prior cholecystectomy. A small remnant gallbladder is seen. This is unchanged. Normal spleen. Normal pancreas. Normal bilateral adrenal glands. Normal right kidney. There is a 4.4 cm x 5.3 cm cyst in the lower pole of the left kidney. There is a small hiatal hernia. Normal small intestine. The patient is status post right hemicolectomy. There is non-visualization of the appendix. There is scattered atherosclerotic calcification of the abdominal aorta, without a demonstrated aneurysm. Normal inferior vena cava. Normal retroperitoneum. Normal urinary bladder. There are prostatic calcifications. The prostate measures 4.2 cm x 4.9 cm. Normal abdominal wall. There are degenerative changes of the visualized lumbar spine. CT/Abdomen/Pelvis WITH Contrast IMPRESSION: Stable examination. Electronically Signed: Zafar Reyes MD at 15:06 EST , Service support ,
[2021-10-24 12:56] LABS: CREATININE FINGERSTICK 0.7 mg/dL (0.70-1.30); EGFR FINGERSTICK > 60.0000 mL/min (>60)
== END ==
PROVIDERS: PCP Family Medicine; Referring Provider Internal Medicine Medical Oncology; Visit Provider Internal Medicine Medical Oncology
DX: C18.9 Malignant neoplasm of colon, unspecified (principal)
CPT/HCPCS: 36415; 74177; 80053; 82378; 83615; 85025; Q9967

== ENCOUNTER → 2022-04-10 | Outpatient (CLI) | payer MEDICARE, OTHER, SELFPAY ==
--- NOTE | 2022-04-10 07:47 | CT_ITS ---
EXAM: CT ABDOMEN AND PELVIS WITH INTRAVENOUS CONTRAST CLINICAL INDICATION: MONITOR COLON CANCER TECHNIQUE: Helically acquired images were obtained of the abdomen and pelvis with intravenous contrast. This CT exam was performed using one or more of the following dose reduction techniques: automated exposure control, adjustment of the mA and/or kV according to patient size, and/or use of iterative reconstruction technique. This report was created using [employer] report generation technology. CONTRAST: IV 100mL Isovue-370 COMPARISON: 10/24/2021 FINDINGS: LOWER THORAX: Small hiatal hernia. Lung bases appear hyperinflated suggestive of underlying pulmonary emphysema. ABDOMEN: LIVER: Unremarkable. Homogeneous. No focal mass. GALLBLADDER AND BILE DUCTS: Surgical clips noted within the right upper quadrant adjacent to the common bile duct/gallbladder unchanged from prior exam. No calcified gallstones. No gallbladder distention or wall edema. PANCREAS: Unremarkable. No focal cystic or solid mass. SPLEEN: Splenic granulomata again seen. ADRENALS: Unremarkable. No nodules. KIDNEYS AND URETERS: Unremarkable. Normal renal size and position. No hydronephrosis. STOMACH AND BOWEL: Surgical changes of right colectomy with ileotransverse colostomy again seen. No evidence of residual or recurrent neoplasm. Single sigmoid colon diverticulum is noted without evidence of acute diverticulitis. PELVIS: APPENDIX: See above. BLADDER: Unremarkable. REPRODUCTIVE: Unremarkable as visualized. No mass. ABDOMEN and PELVIS: INTRAPERITONEAL SPACE: Unremarkable. No ascites or other fluid collection. No free air. BONES/JOINTS: Unremarkable. No suspicious lytic or blastic abnormality. SOFT TISSUES: Unremarkable. No discrete abdominal or pelvic wall hernia. VASCULATURE: Unremarkable. Abdominal aorta is non-dilated. LYMPH NODES: Unremarkable. No enlarged lymph nodes. CT/Abdomen/Pelvis W IV Cont ONLY IMPRESSION: No evidence of residual or recurrent neoplasm. Electronically Signed: Jovi Burnette MD at 9:47 EDT ,
[2022-04-10 08:01] LABS: EGFR FINGERSTICK > 60.0000 mL/min (>60)
== END | disposition home or self-care (01) ==
LOC: CT 07:46
PROVIDERS: PCP Family Medicine; Referring Provider Internal Medicine Medical Oncology; Visit Provider Internal Medicine Medical Oncology
DX: C18.9 Malignant neoplasm of colon, unspecified (principal); Z85.038 Personal history of other malignant neoplasm of large intestine
CPT/HCPCS: 74177; Q9967

== ENCOUNTER 2022-09-26 08:03 | Day surgery (SDC) | payer MEDICARE, OTHER, SELFPAY ==
[2022-09-26] MEDS: Lactated Ringers 1,000 ML 15 ML IV (08:15)
[2022-09-26 08:24] VITALS: BP 144/65; PULSE 66; RESP 16; TEMP 36.5; O2SAT 99; BMI 33.0
--- NOTE | 2022-09-26 09:08 | HP.PCM_ITS ---
History and Physical Date of Admission: 09/26/22 Intake Vital Signs ? 09/04/2208:48 Height 5 ft 6 in Weight: 207 lb BMI 33.4 BP 154/73 H Blood Pressure LocationB Rt popliteal Position Sitting Respiration 16 Pulse 67 Pulse Source Monitor Temp 97.4 F L Temp Source Temporal Pulse Oximetry (%) 98 Oxygen Delivery Method room air Intake Visit Reasons:?CSCOPE Chief Complaint: c-scope Is patient in pain?: No Allergies acetaminophen [From Tylenol] Adverse Reaction (Verified 09/04/22 08:49) rash with prolong use and high doses Medications amlodipine 10 mg tablet 10 mg PO DAILY bp 11/03/19 [History Confirmed 09/04/22] beta carotene 25,000 unit capsule 25,000 unit PO DAILY supplement 11/03/19 [History Confirmed 09/04/22] cholecalciferol (vitamin D3) 25 mcg (1,000 unit) capsule 1,000 unit PO DAILY supplement 11/03/19 [History Confirmed 09/04/22] lutein 25 mg-zeaxanthin 5 mg capsule (Ocuvite Lutein) 1 cap PO QDAY ' 11/03/19 [History Confirmed 09/04/22] lysine 500 mg tablet 500 mg PO DAILY supplement 11/03/19 [History Confirmed 09/04/22] omeprazole 20 mg tablet,delayed release 20 mg PO DAILY gerd 11/03/19 [History Confirmed 09/04/22] saw palmetto 160 mg capsule 160 mg PO DAILY supplement 11/03/19 [History Confirmed 09/04/22] vitamin E 268 mg (400 unit) capsule 400 unit PO DAILY 06/01/20 [History Confirmed 09/04/22] PFSH Medical History? Anemia CAD (coronary artery disease) Colon cancer Dyslipidemia Heme positive stool History of acute pancreatitis History of chronic cholecystitis History of gastroesophageal reflux (GERD) History of stress test Hypertension Surgical History? History of right hemicolectomy Hx of appendectomy Hx of cholecystectomy Family History? Sister Breast cancer Heart disease CVA (cerebral vascular accident)Father Heart diseaseBrother Heart disease Social History? Smoking Status:? Never smoker second hand exposure:? No alcohol intake:? never substance use type:? does not use caffeine:? No what type of physical activity do you participate in:? none frequency:? does not exercise HPI HPI HPI: 77-year-old male with a history of right colon cancer.? He reports today for surveillance colonoscopy.? He is not have any complaints at this time.? He has been following with oncology as well. ROS General General: Yes colon cancer; No weight change, appetite, fatigue, breast cancer or weakness HEENT HEENT: No difficulty swallowing, eye injury, eye surgery, swollen glands or hoarseness Endo Endocrine: No thyroid disease, diabetes mellitus, thyroid cancer, Hair loss, heat intolerance or cold intolerance Skin Skin: No rash or changing moles Breast Breast: No left breast lump, right breast lump, nipple discharge, breast pain, abnormal mammogram, abnormal US or breast enlargement Musc Musculoskeletal: Yes arthritis; No back problems, rheumatoid arthritis, gout or joint pain Cardio Cardiovascular: Yes high blood pressure; No murmur, pacemaker, heart disease, atrial fibrillation, heart attack, heart stent, palpitations, shortness of breat with exertion or chest pain Psych Psychiatric: No depression, anxiety or hearing voices Resp Respiratory: No shortness of breath, No sleep apnea, No cough, No COPD, No asthma, No emphysema and No wheezing Gastro Gastrointestinal: No abdominal pain, No nausea or vomiting, No diarrhea, No constipation, No blood in stool, Yes acid reflux, No hemorrhoids, No ulcers, No gallbladder problem and No black,tarry stools Zhang Hematologic: No blood thinners, No blood disorders, No bleeding, No anemia and No blood clots Neuro Neurologic: No system reviewed and no additional complaints, except as documented, No as per HPI, No abnormal gait, No abnormal hearing, No abnormal movements, No abnormal speech, No behavioral changes, No burning sensations, No confusion, No convulsions, No disequilibrium, No dizziness, No localized weakness, No frequent falls, No headache(s), No lack of coordination, No loss of vision, No memory loss, No numbness, No other visual disturbances, No radicular pain, No restless legs, No sensory deficit, No syncope, No tingling, No tremor(s), No weakness and No other Exam Const General: cooperative Orientation: alert and oriented x3 HENMT Head: normal to inspection Neck Neck: normal visual inspection and full ROM Chest Chest palpation & inspection: normal inspection of the chest Resp Effort & Inspection: normal respiratory effort Auscultation: clear to auscultation bilaterally Cardio Rate: regular rate Rhythm: regular rhythm GI Inspection: non-distended Palpation: soft and nontender Skin General: no rashes or lesions noted Neuro General: patient alert and patient oriented x3 Extrem General: full ROM Psych Appearance: grossly normal Mental Status: mental status grossly normal Assessment and Plan Assessment and Plan (1) History of colon cancer in adulthood: ?Status:?Acute ?Comment: Colon cancer stage IIA, CT 04/10/2022 reviewed, No evidence of disease. ?Plan: This is the patient's third annual surveillance colonoscopy since his colon cancer was resected in 2019.? If there is nothing found on this colonoscopy he may extend his surveillance colonoscopies to 3 years. I explained endoscopy in detail to the patient.? I explained the risks including but not limited to stroke or heart attack with anesthesia, perforation of the GI tract, bleeding, infection.? I explained that any of these could necessitate further emergency surgery.? The patient understands and all questions were answered sufficiently.? The patient wishes to proceed with procedure. Giancarlo Zhou MD Pager: [facility] [address] [place] [address] [address] [place] [address] Office: I have examined the patient and the H&P has been reviewed. There are no clinical changes since date of exam.
[2022-09-26 09:30] VITALS: BP 144/65; BP 89/63; PULSE 62; RESP 14; TEMP 36.4; O2SAT 94
--- NOTE | 2022-09-26 09:32 | OP.COLON_ITS ---
Patient Name: Dougie Chan Procedure Date: 09/26/2022 9:08 AM Date of : 1945 Age: 77 Procedure: Colonoscopy Indications: High risk colon cancer surveillance: Personal history of colon cancer Providers: Giancarlo Zhou MD Medicines: Monitored Anesthesia Care Patient Profile: This is a 77 year old male. Refer to note in patient chart for documentation of history and physical. Last Colonoscopy: 1 year ago. Complications: No immediate complications. Procedure: Pre-Anesthesia Assessment: - Prior to the procedure, a History and Physical was performed, and patient medications and allergies were reviewed. The patient's tolerance of previous anesthesia was also reviewed. The risks and benefits of the procedure and the sedation options and risks were discussed with the patient. All questions were answered, and informed consent was obtained. Prior Anticoagulants: The patient has taken no previous anticoagulant or antiplatelet agents. After reviewing the risks and benefits, the patient was deemed in satisfactory condition to undergo the procedure. After I obtained informed consent, the scope was passed under direct vision. Throughout the procedure, the patient's blood pressure, pulse, and oxygen saturations were monitored continuously. The colonoscope was introduced through the anus and advanced to the ileocolonic anastomosis. The colonoscopy was performed without difficulty. The patient tolerated the procedure well. The quality of the bowel preparation was good. Scope In: 9:16:05 AM Scope Withdrawal Time 0 hours 6 minutes 29 seconds Scope Out: 9:25:29 AM Total Procedure Duration Time 0 hours 9 minutes 24 seconds Findings: The entire examined colon appeared normal on direct and retroflexion views. Impression: - The entire examined colon is normal on direct and retroflexion views. - No specimens collected. Recommendation: - Discharge patient to home. - Resume previous diet. - Continue present medications. - Repeat colonoscopy in 3 years for surveillance. Procedure Code(s): --- Professional --- 38528, Colonoscopy, flexible; diagnostic, including collection of specimen(s) by brushing or washing, when performed (separate procedure) Diagnosis Code(s): --- Professional --- Z85.038, Personal history of other malignant neoplasm of large intestine CPT copyright 2017 [employer]. All rights reserved. The codes documented in this report are preliminary and upon cemetery keeper review may be revised to meet current compliance requirements. Giancarlo Zhou MD 09/26/2022 9:32:26 AM This report has been signed electronically. Number of Addenda: 0 Note Initiated On: 09/26/2022 9:08 AM
--- NOTE | 2022-09-26 09:33 | OP.CCLET_ITS ---
09/26/2022 Matteo Chan [address] [place] [address] Re : Colonoscopy procedure for Dougie Chan Dear Dr. Chan This procedure was performed on Monday, September 26, 2022. My impressions and recommendations are as follows: Impressions : - The entire examined colon is normal on direct and retroflexion views. - No specimens collected. Recommendations : - Discharge patient to home. - Resume previous diet. - Continue present medications. - Repeat colonoscopy in 3 years for surveillance. My findings are described in the full procedure note, which is enclosed. If I can be of further assistance, please feel free to contact me at Doctor phone number(s): , Work: . Sincerely, Giancarlo Zhou MD 09/26/2022 9:32:26 AM This report has been signed electronically.
[2022-09-26 09:35] VITALS: BP 107/77; BP 144/65; PULSE 66; RESP 14; O2SAT 94
[2022-09-26 09:40] VITALS: BP 119/83; BP 144/65; PULSE 65; RESP 16; O2SAT 94
[2022-09-26 09:45] VITALS: BP 125/78; BP 144/65; PULSE 71; RESP 16; TEMP 36.9; O2SAT 97
[2022-09-26 10:09] VITALS: BP 144/65
== END 2022-09-26 10:11 | disposition home or self-care (01) ==
LOC: EN 08:07 → AC 08:08
PROVIDERS: PCP Family Medicine; Referring Provider Family Medicine; Visit Provider Surgery
PROC: 0DJD8ZZ Inspection of Lower Intestinal Tract, Via Natural or Artificial Opening Endoscopic (ICD-10-PCS; CPT 45378; principal; 2022-09-26 09:10)
DX: Z12.11 Encounter for screening for malignant neoplasm of colon (principal); I25.10 Atherosclerotic heart disease of native coronary artery without angina pectoris; I10 Essential (primary) hypertension; K21.9 Gastro-esophageal reflux disease without esophagitis; Z79.899 Other long term (current) drug therapy; Z85.038 Personal history of other malignant neoplasm of large intestine
CPT/HCPCS: 45378; J7120; J2405

== ENCOUNTER 2022-10-05 14:13 | Outpatient (CLI) | payer MEDICARE, OTHER, SELFPAY ==
[2022-10-05 18:13] LABS: Cholesterol 148 mg/dL (200); High Density Lipoprotein 37 mg/dL; PSA,Total - Annual Screen 1.87 ng/mL (0.00-4.00); Triglycerides 177 mg/dL; Very Low Density Lipoprotein 35 mg/dL (5-40)
[2022-10-05 18:22] LABS: Hemoglobin A1c 6.6 % (3.8-5.6)
== END 2022-10-05 23:59 | disposition home or self-care (01) ==
LOC: BFHLAB 14:14
PROVIDERS: PCP Family Medicine; Visit Provider Family Medicine
DX: I10 Essential (primary) hypertension (principal); R73.01 Impaired fasting glucose; Z12.5 Encounter for screening for malignant neoplasm of prostate
CPT/HCPCS: 36415; 80061; 83036; 84153; G0103

== ENCOUNTER 2022-10-10 07:53 | Outpatient (CLI) | payer MEDICARE, OTHER, SELFPAY ==
--- NOTE | 2022-10-10 07:57 | CT_ITS ---
STUDY: CT ABDOMEN AND PELVIS WITH CONTRAST REASON FOR EXAM: Male, 77 years old. MONITOR-HX OF COLON CA RADIATION DOSAGE (If Supplied By Facility): CTDIvol = ( 17.66 ) mGy, DLP = ( 1331.98 ) mGycm TECHNIQUE: Transaxial images were obtained from the dome of the diaphragm to the symphysis pubis without oral contrast. IV 100mL Isovue-300 was administered. Sagittal and coronal images were reconstructed. Individualized dose optimization techniques were used for this CT. COMPARISON: Apr [address] scan abdomen and pelvis, 05/25/2020 CT abdomen and pelvis FINDINGS: The visualized lung bases are unremarkable. The visualized portions of the heart are within normal limits. Normal liver. There is postoperative change in the gallbladder fossa. Unchanged since 05/25/2020, There is a remnant stable appearing cystic structure probable remnant cystic duct measuring 3.7 x 1.3 cm. There is a benign calcified granuloma of the spleen. There is diffuse atrophy of the pancreas. Normal bilateral adrenal glands. Normal right kidney. There is a well-circumscribed lower pole left renal cyst measuring 4.7 x 4.3 cm slightly enlarged since prior studies allowing for passage of time. Benign-appearing [place] units. There is a stable 3.2 x 2.5 small hiatal hernia. Normal small intestine. There is been a resection of the ascending colon. There is postoperative change in the right upper quadrant. There is mild to moderate stool within the colon. There are a few diverticula present within the descending colon without diverticulitis. There is non-visualization of the appendix. The aorta is partially calcified. Normal inferior vena cava. Normal retroperitoneum. Normal urinary bladder. Normal visualized prostate gland. There is a small umbilical hernia containing fat. There is degenerative disc disease. At the level of L5-S1 there is disc space narrowing and broad disc bulge facet arthropathy mild neural foramina narrowing without central stenosis. There is facet arthropathy L5-S1. There is a small stable focus of sclerotic density within the left ilium at the sacroiliac joint that measures approximately [address]/Abdomen/Pelvis W IV Cont ONLY IMPRESSION: Relatively stable CT abdomen and pelvis. Status post cholecystectomy Status post hemicolectomy postoperative change. Benign left renal cyst. Small stable hiatal hernia. Diverticulosis and diverticulitis. No visualized suspicious lymphadenopathy or findings suggestive of metastatic disease. Degenerative changes of thoracolumbar spine. Electronically Signed: Diana Cuenca MD at 8:41 EST ,
[2022-10-10 08:26] LABS: CREATININE FINGERSTICK < 0.9 mg/dL (0.70-1.30); EGFR FINGERSTICK > 60.0000 mL/min (>60)
== END 2022-10-10 23:59 | disposition home or self-care (01) ==
PROVIDERS: PCP Family Medicine; Visit Provider Internal Medicine Medical Oncology
DX: C18.9 Malignant neoplasm of colon, unspecified (principal); Z85.038 Personal history of other malignant neoplasm of large intestine
CPT/HCPCS: 36415; 74177; 80053; 82378; 83615; 85025; Q9967

== ENCOUNTER → 2023-10-15 | Outpatient (CLI) | payer MEDICARE, OTHER, SELFPAY ==
[2023-10-15 07:59] LABS: Absolute Lymphocyte Count 3.27 X10^3/uL (0.83-4.51); Basophil# 0.03 X10^3/uL; Basophil% 0.4 % (0-1); Eosinophil# 0.43 X10^3/uL; Eosinophils% 5.9 % (0-5); Hematocrit 46.4 % (40-54); Hemoglobin 15.7 g/dL (13.0-16.5); Lymphocyte # 3.27 X10^3/ul (0.83-4.51); Lymphocyte % 44.9 % (19-41); Mean Corp Hgb Conc 33.8 g/dL (32-36); Mean Corpuscular Hgb 31.8 pg (27.0-32.0); Mean Corpuscular Volume 94.1 fL (80-94); Mean Platelet Vol. 10.1 fl (6.2-12.0); Monocyte# 0.49 X10^3/uL; Monocyte% 6.7 % (0-10); NRBC Flagged by Analyzer 0 % (0-5); Neutrophil # 3.04 X10^3/uL (2.7-7.7); Neutrophil % 41.8 % (47-70); Platelet Count 226 K/mm3 (150-450); Red Blood Count 4.93 M/mm3 (4.6-6.2); White Blood Count 7.3 K/mm3 (4.4-11.0)
--- NOTE | 2023-10-15 08:00 | CT_ITS ---
STUDY: CT ABDOMEN AND PELVIS WITH CONTRAST - URINARY TRACT REASON FOR EXAM: Male, 78 years old. MONITOR COLON CA RADIATION DOSAGE (If Supplied By Facility): CTDIvol = ( 17.07 ) mGy, DLP = ( 1238.42 ) mGycm TECHNIQUE: IV 100mL Isovue-370 was administered. Transaxial images were obtained from the dome of the diaphragm to the symphysis pubis subsequent to intravenous contrast administration. Multiplanar coronal and sagittal images were reformatted. Individualized Dose Optimization Techniques Were Used For This CT. COMPARISON: October 24, 2021, April 10, 2022 and October 10, 2022 FINDINGS: The visualized lung bases are unremarkable. There are coronary artery calcifications. There are calcified left hilar lymph nodes. There is decreased attenuation of the liver consistent with steatosis. There are surgical clips within the gallbladder fossa suggestive of prior cholecystectomy. There is a stable low attenuation round focus proximal to the surgical clips which may reflect a remnant cystic duct. There are scattered benign calcified granulomata of the spleen. Normal pancreas. Normal bilateral adrenal glands. There is a small hiatal hernia. Normal small intestine. There are multiple colonic diverticula consistent with diverticulosis. There are postsurgical changes of the colon. There is non-visualization of the appendix. There is diffuse atherosclerotic calcification of the abdominal aorta, without a demonstrated aneurysm. No retroperitoneal adenopathy. Normal right kidney. There is a left renal cyst. Normal urinary bladder. There is a small umbilical hernia containing fat. There are diffuse degenerative changes of the visualized lumbar spine. CT/Abdomen/Pelvis W IV Cont ONLY IMPRESSION: Colonic diverticulosis. Hiatal hernia. Atherosclerosis. Electronically Signed: Karen Bernardo MD at 8:24 EST ,
[2023-10-15 08:13] LABS: CREATININE FINGERSTICK < 0.9 mg/dL (0.70-1.30); EGFR FINGERSTICK > 60.0000 mL/min (>60)
[2023-10-15 08:25] LABS: ALB/GLOB Ratio 1.1 RATIO (0.9-2.4); AST(SGOT) 25 U/L (15-37); Alanine Aminotransfer ALT/SGPT 30 U/L (16-61); Albumin, Serum 3.5 g/dL (3.2-5.0); Alkaline Phosphatase 58 U/L (45-117); Anion Gap 5 (5-15); BUN 15 mg/dL (7-18); Calcium,Total 8.6 mg/dL (8.5-10.1); Chloride 109 mmol/L (98-107); Creatinine, Serum 1.07 mg/dL (0.70-1.30); EST Glomerular Filtration Rate 71 mL/min (>60); Est Glom Filt Rate - Afr Amer 86 mL/min (>60); Globulin 3.3 g/dL (2.2-4.2); Glucose 155 mg/dL (74-106); LDH 199 U/L (87-241); Potassium 3.6 mmol/L (3.5-5.1); Protein, Total 6.8 g/dL (6.4-8.2); Sodium Level 139 mmol/L (136-145)
== END | disposition home or self-care (01) ==
LOC: CT 07:19
PROVIDERS: PCP Family Medicine; Referring Provider Internal Medicine Medical Oncology; Visit Provider Internal Medicine Medical Oncology
DX: C18.9 Malignant neoplasm of colon, unspecified (principal); D50.9 Iron deficiency anemia, unspecified
CPT/HCPCS: 36415; 74177; 80053; 83615; 85025; Q9967

== ENCOUNTER → 2024-10-15 | Outpatient (CLI) | payer MEDICARE, OTHER, SELFPAY ==
[2024-10-15 12:32] LABS: Absolute Lymphocyte Count 2.65 X10^3/uL (0.83-4.51); Absolute Neutrophil Count 4.1 X10^3/uL (2.0-7.7); Basophil# 0.02 X10^3/uL; Basophil% 0.3 % (0-1); Eosinophil# 0.36 X10^3/uL; Eosinophils% 4.7 % (0-5); Hematocrit 47.6 % (40-54); Hemoglobin 16.3 g/dL (13.0-16.5); Lymphocyte # 2.65 X10^3/ul (0.83-4.51); Lymphocyte % 34.9 % (19-41); Mean Corp Hgb Conc 34.2 g/dL (32-36); Mean Corpuscular Volume 93.3 fL (80-94); Mean Platelet Vol. 9.7 fl (6.2-12.0); Monocyte# 0.47 X10^3/uL; Monocyte% 6.2 % (0-10); NRBC Flagged by Analyzer 0 % (0-5); Neutrophil # 4.05 X10^3/uL (2.7-7.7); Neutrophil % 53.4 % (47-70); Platelet Count 208 K/mm3 (150-450); RBC Distribution Width CV 12.8 % (11.6-14.6); RBC Distribution Width SD 43.9 fl (35.1-43.9); White Blood Count 7.6 K/mm3 (4.4-11.0)
[2024-10-15 12:38] LABS: CREATININE FINGERSTICK < 1.0 mg/dL (0.70-1.30); EGFR FINGERSTICK > 60.0000 mL/min (>60)
[2024-10-15 13:03] LABS: ALB/GLOB Ratio 1.1 RATIO (0.9-2.4); AST(SGOT) 23 U/L (15-37); Alanine Aminotransfer ALT/SGPT 32 U/L (16-61); Albumin, Serum 3.8 g/dL (3.2-5.0); Alkaline Phosphatase 69 U/L (45-117); Anion Gap 5 (5-15); BUN 18 mg/dL (7-18); BUN/Creat Ratio 15.5 RATIO (10-20); Chloride 107 mmol/L (98-107); Creatinine, Serum 1.16 mg/dL (0.70-1.30); EST Glomerular Filtration Rate 64 mL/min (>60); Est Glom Filt Rate - Afr Amer 78 mL/min (>60); Globulin 3.5 g/dL (2.2-4.2); Glucose 256 mg/dL (74-106); LDH 176 U/L (87-241); Potassium 3.8 mmol/L (3.5-5.1); Protein, Total 7.3 g/dL (6.4-8.2); Sodium Level 138 mmol/L (136-145)
[2024-10-16 08:12] LABS: Carcinoembryonic Antigen 3.4 ng/mL (0.0-4.7)
== END | disposition home or self-care (01) ==
LOC: CT 12:07
PROVIDERS: PCP Family Medicine; Referring Provider Internal Medicine Medical Oncology; Visit Provider Internal Medicine Medical Oncology
DX: C18.2 Malignant neoplasm of ascending colon (principal); Z85.038 Personal history of other malignant neoplasm of large intestine
CPT/HCPCS: 36415; 74177; 80053; 82378; 83615; 85025; Q9967

== ENCOUNTER → 2025-10-12 | Outpatient (CLI) | payer MEDICARE, SELFPAY ==
[2025-10-12 17:35] LABS: Hematocrit 48.1 % (40-54); Hemoglobin 16.5 g/dL (13.0-16.5); Immature Granulocytes Count 0.020 X10^3/uL (0.0-0.0); Mean Corp Hgb Conc 34.3 g/dL (32-36); Mean Corpuscular Volume 94.7 fL (80-94); Mean Platelet Vol. 11.0 fl (6.2-12.0); NRBC Flagged by Analyzer 0 % (0-5); Platelet Count 210 K/mm3 (150-450); RBC Distribution Width CV 12.6 % (11.6-14.6); RBC Distribution Width SD 44.0 fl (35.1-43.9); Red Blood Count 5.08 M/mm3 (4.6-6.2); White Blood Count 6.7 K/mm3 (4.4-11.0)
[2025-10-12 18:15] LABS: AST(SGOT) 22 U/L (<=37); Alanine Aminotransfer ALT/SGPT 19 U/L (<=46); Albumin, Serum 4.3 g/dL (3.4-4.8); Alkaline Phosphatase 65 U/L (40-129); Anion Gap 13 (5-15); BUN 17 mg/dL (4-19); BUN/Creat Ratio 16.1 RATIO (10-20); Calcium,Total 9.4 mg/dL (7.6-11.0); Carbon Dioxide 21.4 mmol/L (21.0-32.0); Chloride 100 mmol/L (98-108); Cholesterol 163 mg/dL (<=200); Globulin 2.8 g/dL (2.2-4.2); Glucose 430 mg/dL (70-99); Low Density Lipoprotein Calc. 95 mg/dL; Potassium 4.2 mmol/L (3.3-5.1); Triglycerides 175 mg/dL; Very Low Density Lipoprotein 35 mg/dL (5-40); cholesterol:hdl ratio screen 4.32
[2025-10-12 18:25] LABS: AST(SGOT) 24 U/L (<=37); Alanine Aminotransfer ALT/SGPT 20 U/L (<=46); Albumin, Serum 4.2 g/dL (3.4-4.8); Alkaline Phosphatase 65 U/L (40-129); Anion Gap 17 (5-15); BUN 16 mg/dL (4-19); BUN/Creat Ratio 14.6 RATIO (10-20); Calcium,Total 9.1 mg/dL (7.6-11.0); Carbon Dioxide 18.2 mmol/L (21.0-32.0); Chloride 99 mmol/L (98-108); Globulin 2.7 g/dL (2.2-4.2); Glucose 421 mg/dL (70-99); LDH 218 U/L (87-241); Potassium 4.2 mmol/L (3.3-5.1)
[2025-10-14 04:07] LABS: Carcinoembryonic Antigen 3.8 ng/mL (0.0-4.7)
== END | disposition home or self-care (01) ==
LOC: BFHLAB 15:27
PROVIDERS: Internal Medicine Medical Oncology; PCP Family Medicine; Visit Provider Family Medicine
DX: I10 Essential (primary) hypertension (principal); E11.9 Type 2 diabetes mellitus without complications; Z85.038 Personal history of other malignant neoplasm of large intestine
CPT/HCPCS: 36415; 80053; 80061; 82378; 83036; 83615; 85025